=== PATIENT | female | born 1960 | race Caucasian/White ===

== ENCOUNTER 2022-12-25 16:48 | Inpatient (IN) | payer MEDICARE ==
[2022-12-25] MEDS ORDERED: methylPREDNISolone Sod Succ/PF 125 MG/2 ML VIAL ONE (17:14)
[2022-12-25 17:29] LABS: #Basophils 0.1 10x3/uL (0.0-0.2); #Monocytes 0.2 10x3/uL (0.0-1.1); #Neutrophils 14.2 10x3/uL (1.5-8.4); %Basophils 0.4 % (0.0-2.0); %Eosinophils 0.3 % (0.0-6.0); %Lymphocytes 7.4 % (18.0-47.0); %Monocytes 1.1 % (0.0-10.0); %Neutrophils 90.4 % (40.0-75.0); Hemoglobin 16.8 g/dL (12.0-15.5); Mean Corpuscular HGB CONC 33.5 g/dL (32.0-36.0); Mean Corpuscular Hemoglobin 30.4 pg (27.0-33.0); Mean Corpuscular Volume 90.8 fl (81.6-98.3); Mean Platelet Volume 9.3 fl (7.4-10.4); Platelet Count 282 10x3/uL (150-450); RBC Distribution Width 12.5 % (11.5-14.5); Red Blood Cell (RBC) Count 5.53 10x6/uL (3.90-5.03); White Blood Cell (WBC) Count 15.7 10x3/uL (3.5-10.5)
[2022-12-25] MEDS ORDERED: Levalbuterol HCl 0.63 MG/3 ML NEB NEB SCH (17:30)
[2022-12-25 17:38] LABS: ALT (SGPT) 20 U/L (8-55); AST (SGOT) 19 U/L (5-34); Albumin 4.5 g/dL (3.4-4.8); Alkaline Phosphatase 51 U/L (40-110); Anion Gap 17 mmol/L (10-20); BUN (Urea Nitrogen) 11 mg/dL (9.8-20.1); Bilirubin, Total 0.7 mg/dL (0.2-1.2); Calc. Creatinine Clearance 0 mL/min (70-130); Calcium 10.6 mg/dL (7.8-10.44); Carbon Dioxide 24 mmol/L (23-31); Chloride 104 mmol/L (98-107); Estimated GFR 47; Globulin 2.6 g/dL (2.4-3.5); Glucose 171 mg/dL (80-115); Protein, Total 7.1 g/dL (5.8-8.1); Sodium 141 mmol/L (136-145)
[2022-12-25 17:56] LABS: Actual Bicarbonate (HCO3a) 19.5 mEq/L (22-28); Base Excess (BEa) -6.8 mEq/L (-2.0 to +3.0); CO2 Tension 41.8 mmHg (35.0-45.0); Calcium, Ionized (arterial) 1.28 mmol/L (1.12-1.30); Carboxyhemoglobin (COHb) 0.6 gm% (0.0-3.0); Hemoglobin (Hb) 16.3 g/dL (12.0-16.0); Potassium - ABG Lab 3.7 mmol/L (3.70-5.30); Puncture Site LRA; pH, Arterial 7.29 (7.35-7.45)
[2022-12-25] MEDS ORDERED: HYDROcodone/Acetaminophen 5/325 mg Tablet PO PRN (17:56)
[2022-12-25] MEDS ORDERED: Ondansetron PF 4 MG/2 ML Vial IVP PRN (17:56)
[2022-12-25] MEDS ORDERED: Acetaminophen 650 MG Suppository PR PRN (17:56)
[2022-12-25] MEDS ORDERED: cefTRIAXone\\ROCEPHIN 2 GM in Sodium Chloride 0.9% 100 ML IVPB SCH (18:00)
[2022-12-25] MEDS ORDERED: Rocuronium Bromide 10 MG/ML (10ML VIAL) ONE (18:41)
[2022-12-25] MEDS ORDERED: Propofol BOLUS 1,000 MG/100 ML VIAL IV PRN (20:15)
[2022-12-25] MEDS ORDERED: Fentanyl BOLUS 250 ML IVPB PRN (20:15)
[2022-12-25] MEDS ORDERED: DISCONTINUE PREVIOUS NARCOTIC PAIN MEDICATIONS AND BENZODIAZEPINES FS SCH (20:15)
[2022-12-25] MEDS ORDERED: Arformoterol 15 MCG/2 ML NEB NEB SCH (20:15)
[2022-12-25 20:33] LABS: Troponin I Less than 0.010 ng/mL (< 0.028)
[2022-12-25] MEDS: Sodium Chloride 0.9% 1,000 ML IV SCH (20:44)
[2022-12-25] MEDS: methylPREDNISolone Sod Succ 40 MG VIAL IVP SCH (20:44)
[2022-12-25] MEDS: Azithromycin 500 MG in Sodium Chloride 0.9% 250 ML 250 ML IVPB SCH (20:45)
[2022-12-25] MEDS ORDERED: Famotidine 20 MG TAB PO SCH (21:00)
[2022-12-25] MEDS ORDERED: Heparin 5,000 UNITS/ML VIAL SC SCH (21:00)
[2022-12-25 21:41] LABS: Bilirubin Neg (Negative); Blood, Urine 50 (Negative); Clarity Clear (Clear); Glucose, Urine (Dipstick) Normal (Negative); Ketone, Urine Negative (Negative); Leukocyte Negative (Negative); Nitrite Negative (Negative); Protein, Urine (Dipstick) 15 mg/dl (Neg-Trace); Specific Gravity, Urine 1.015 (1.005-1.030); Urobilinogen Normal mg/dL (Less than 2)
[2022-12-25 22:15] LABS: Bacteria/HPF None Seen HPF (None Seen); Squamous Epithelial 0-3 HPF (0-3); WBC/HPF 0-3 HPF (0-3)
[2022-12-25] MEDS: Ipratropium/Albuterol 3 ML NEB NEB SCH (23:05)
[2022-12-25 23:55] LABS: Troponin I Less than 0.010 ng/mL (< 0.028)
[2022-12-26] MEDS: methylPREDNISolone Sod Succ 40 MG VIAL IVP SCH ×4 (02:50→20:21)
[2022-12-26] MEDS: cefTRIAXone\\ROCEPHIN 2 GM in Sodium Chloride 0.9% 100 ML IVPB SCH (02:50)
[2022-12-26] MEDS ORDERED: Cefepime 2 GM in Sodium Chloride 0.9% 100 ML IVPB SCH (03:00)
[2022-12-26] MEDS: Ipratropium/Albuterol 3 ML NEB NEB SCH ×6 (03:35→22:30)
[2022-12-26] MEDS ORDERED: Dextrose 50% Abboject 50 ML SYRINGE SLOW IVP PRN (04:04)
[2022-12-26] MEDS ORDERED: Dextrose 5% in Water 1,000 ML IV PRN (04:04)
[2022-12-26 04:07] LABS: Actual Bicarbonate (HCO3a) 22.9 mEq/L (22-28); Base Excess (BEa) -4.8 mEq/L (-2.0 to +3.0); CO2 Tension 51.8 mmHg (35.0-45.0); Calcium, Ionized (arterial) 1.36 mmol/L (1.12-1.30); Critical Notified By: CP.PH; Hemoglobin (Hb) 16.2 g/dL (12.0-16.0); O2 Tension (PaO2), arterial 64.3 mmHg (> 80.0); Potassium - ABG Lab 4.6 mmol/L (3.70-5.30); Puncture Site RRA; RapidComm Collect By CP.PH; pH, Arterial 7.26 (7.35-7.45)
[2022-12-26 04:09] LABS: #Monocytes 0.5 10x3/uL (0.0-1.1); #Neutrophils 14.3 10x3/uL (1.5-8.4); %Basophils 0.2 % (0.0-2.0); %Lymphocytes 7.4 % (18.0-47.0); %Monocytes 2.9 % (0.0-10.0); %Neutrophils 88.8 % (40.0-75.0); Hemoglobin 15.2 g/dL (12.0-15.5); Mean Corpuscular Hemoglobin 30.2 pg (27.0-33.0); Mean Corpuscular Volume 91.3 fl (81.6-98.3); Mean Platelet Volume 9.3 fl (7.4-10.4); Platelet Count 250 10x3/uL (150-450); RBC Distribution Width 12.7 % (11.5-14.5); Red Blood Cell (RBC) Count 5.04 10x6/uL (3.90-5.03); White Blood Cell (WBC) Count 16.1 10x3/uL (3.5-10.5)
[2022-12-26 04:11] LABS: ALT (SGPT) 18 U/L (8-55); AST (SGOT) 15 U/L (5-34); Albumin 3.9 g/dL (3.4-4.8); Alkaline Phosphatase 43 U/L (40-110); Anion Gap 16 mmol/L (10-20); BUN (Urea Nitrogen) 17 mg/dL (9.8-20.1); Bilirubin, Total 0.3 mg/dL (0.2-1.2); Calc. Creatinine Clearance 38 mL/min (70-130); Carbon Dioxide 20 mmol/L (23-31); Chloride 111 mmol/L (98-107); Estimated GFR 48; Globulin 2.4 g/dL (2.4-3.5); Glucose 193 mg/dL (80-115); Magnesium 2.1 mg/dL (1.6-2.6); Potassium 3.8 mmol/L (3.5-5.1); Protein, Total 6.3 g/dL (5.8-8.1); Sodium 143 mmol/L (136-145)
[2022-12-26] MEDS ORDERED: Lactated Ringer's 1,000 ML IV SCH (04:15)
[2022-12-26] MEDS: Arformoterol 15 MCG/2 ML NEB NEB SCH ×2 (07:00→18:50)
[2022-12-26] MEDS ORDERED: DEXMEDETOMIDINE ONE (07:44)
[2022-12-26] MEDS ORDERED: NACL 0.9% ONE (07:44)
[2022-12-26] MEDS: Dexmedetomidine In 0.9 % NaCl 100 ML IVPB SCH ×3 (07:45→20:21)
[2022-12-26 07:51] LABS: ALV-art Gradient 231.075 mmHg (0-20); Actual Bicarbonate (HCO3a) 24.8 mEq/L (22-28); Base Excess (BEa) -0.8 mEq/L (-2.0 to +3.0); CO2 Tension 44.1 mmHg (35.0-45.0); Calcium, Ionized (arterial) 1.34 mmol/L (1.12-1.30); Carboxyhemoglobin (COHb) 0.4 gm% (0.0-3.0); Hemoglobin (Hb) 15.4 g/dL (12.0-16.0); O2 Tension (PaO2), arterial 70.3 mmHg (> 80.0); Potassium - ABG Lab 3.8 mmol/L (3.70-5.30); Puncture Site LRA; pH, Arterial 7.37 (7.35-7.45)
[2022-12-26] MEDS ORDERED: methylPREDNISolone Sod Succ 40 MG VIAL IVP SCH (08:00)
[2022-12-26] MEDS: Sodium Chloride 0.9% 1,000 ML IV SCH ×2 (08:18→21:28)
[2022-12-26] MEDS: Pantoprazole 40 MG VIAL IVP SCH (08:20)
[2022-12-26] MEDS: HumaLOG 300 UNITS/3 ML VIAL SC PRN ×3 (08:21→16:18)
[2022-12-26] MEDS ORDERED: Azithromycin 500 MG in Sodium Chloride 0.9% 250 ML 250 ML IVPB SCH (18:00)
[2022-12-26] MEDS ORDERED: Sodium Chloride 0.9% 250 ML 250 ML ONE (20:17)
[2022-12-26] MEDS: Azithromycin 500 MG in Sodium Chloride 0.9% 250 ML 250 ML IVPB SCH (20:21)
[2022-12-26] MEDS: Lorazepam 2 MG/ML VIAL SLOW IVP PRN (23:32)
[2022-12-26] MEDS: Guaifenesin DM 100-10/5 ML UDCUP PO PRN (23:32)
[2022-12-27] MEDS: Ipratropium/Albuterol 3 ML NEB NEB SCH ×6 (02:30→22:30)
[2022-12-27] MEDS: methylPREDNISolone Sod Succ 40 MG VIAL IVP SCH ×4 (03:04→20:36)
[2022-12-27] MEDS: Dexmedetomidine In 0.9 % NaCl 100 ML IVPB SCH ×4 (03:04→22:54)
[2022-12-27] MEDS: cefTRIAXone\\ROCEPHIN 2 GM in Sodium Chloride 0.9% 100 ML IVPB SCH (03:04)
[2022-12-27 04:18] LABS: ALV-art Gradient 158.675 mmHg (0-20); Actual Bicarbonate (HCO3a) 25.4 mEq/L (22-28); Base Excess (BEa) 0.1 mEq/L (-2.0 to +3.0); CO2 Tension 43.3 mmHg (35.0-45.0); Calcium, Ionized (arterial) 1.35 mmol/L (1.12-1.30); Carboxyhemoglobin (COHb) 0.3 gm% (0.0-3.0); Critical Notified By: CP.PH; Hemoglobin (Hb) 14.9 g/dL (12.0-16.0); O2 Tension (PaO2), arterial 72.4 mmHg (> 80.0); Potassium - ABG Lab 3.3 mmol/L (3.70-5.30); Puncture Site RRA; RapidComm Collect By CP.PH; pH, Arterial 7.39 (7.35-7.45)
[2022-12-27 05:28] LABS: #Monocytes 0.5 10x3/uL (0.0-1.1); #Neutrophils 14.9 10x3/uL (1.5-8.4); %Basophils 0.1 % (0.0-2.0); %Monocytes 2.8 % (0.0-10.0); %Neutrophils 91.4 % (40.0-75.0); Hemoglobin 14.3 g/dL (12.0-15.5); Mean Corpuscular HGB CONC 33.1 g/dL (32.0-36.0); Mean Corpuscular Hemoglobin 30.6 pg (27.0-33.0); Mean Corpuscular Volume 92.5 fl (81.6-98.3); Mean Platelet Volume 9.7 fl (7.4-10.4); Platelet Count 199 10x3/uL (150-450); RBC Distribution Width 12.8 % (11.5-14.5); Red Blood Cell (RBC) Count 4.67 10x6/uL (3.90-5.03); White Blood Cell (WBC) Count 16.3 10x3/uL (3.5-10.5)
[2022-12-27 05:35] LABS: Anion Gap 15 mmol/L (10-20); BUN (Urea Nitrogen) 25 mg/dL (9.8-20.1); Calc. Creatinine Clearance 46 mL/min (70-130); Calcium 10.4 mg/dL (7.8-10.44); Carbon Dioxide 20 mmol/L (23-31); Chloride 115 mmol/L (98-107); Estimated GFR 59; Glucose 161 mg/dL (80-115); Potassium 3.6 mmol/L (3.5-5.1); Sodium 146 mmol/L (136-145)
[2022-12-27] MEDS: Arformoterol 15 MCG/2 ML NEB NEB SCH ×2 (06:30→19:20)
[2022-12-27] MEDS: Pantoprazole 40 MG VIAL IVP SCH (08:06)
[2022-12-27] MEDS: Lorazepam 2 MG/ML VIAL SLOW IVP PRN ×4 (08:57→23:47)
[2022-12-27] MEDS: Sodium Chloride 0.9% 1,000 ML IV SCH (11:20)
[2022-12-27] MEDS: Morphine 2 MG/ML VIAL SLOW IVP PRN (12:10)
[2022-12-27] MEDS: Guaifenesin DM 100-10/5 ML UDCUP PO PRN ×2 (12:11→22:54)
[2022-12-27] MEDS: Labetalol HCl 100 MG/20 ML VIAL SLOW IVP PRN (12:34)
[2022-12-27] MEDS: Azithromycin 500 MG in Sodium Chloride 0.9% 250 ML 250 ML IVPB SCH (20:36)
[2022-12-28] MEDS: Sodium Chloride 0.9% 1,000 ML IV SCH (00:33)
[2022-12-28] MEDS: Ipratropium/Albuterol 3 ML NEB NEB SCH ×6 (02:40→22:30)
[2022-12-28] MEDS: cefTRIAXone\\ROCEPHIN 2 GM in Sodium Chloride 0.9% 100 ML IVPB SCH (03:15)
[2022-12-28] MEDS: methylPREDNISolone Sod Succ 40 MG VIAL IVP SCH ×4 (03:16→20:08)
[2022-12-28 03:38] LABS: #Monocytes 0.5 10x3/uL (0.0-1.1); #Neutrophils 12.8 10x3/uL (1.5-8.4); %Basophils 0.2 % (0.0-2.0); %Lymphocytes 5.1 % (18.0-47.0); %Monocytes 3.3 % (0.0-10.0); %Neutrophils 90.2 % (40.0-75.0); Hemoglobin 13.7 g/dL (12.0-15.5); Mean Corpuscular HGB CONC 32.1 g/dL (32.0-36.0); Mean Corpuscular Hemoglobin 30.4 pg (27.0-33.0); Mean Corpuscular Volume 94.9 fl (81.6-98.3); Mean Platelet Volume 9.6 fl (7.4-10.4); Platelet Count 208 10x3/uL (150-450); RBC Distribution Width 13.2 % (11.5-14.5); White Blood Cell (WBC) Count 14.2 10x3/uL (3.5-10.5)
[2022-12-28 03:54] LABS: Anion Gap 12 mmol/L (10-20); BUN (Urea Nitrogen) 32 mg/dL (9.8-20.1); Calc. Creatinine Clearance 44 mL/min (70-130); Calcium 10.4 mg/dL (7.8-10.44); Carbon Dioxide 25 mmol/L (23-31); Chloride 118 mmol/L (98-107); Estimated GFR 56; Glucose 176 mg/dL (80-115); Potassium 3.8 mmol/L (3.5-5.1)
[2022-12-28 03:58] LABS: Sodium 151 mmol/L (136-145)
[2022-12-28] MEDS: Labetalol HCl 100 MG/20 ML VIAL SLOW IVP PRN (04:15)
[2022-12-28 04:21] LABS: Actual Bicarbonate (HCO3a) 25.7 mEq/L (22-28); Base Excess (BEa) -1.3 mEq/L (-2.0 to +3.0); CO2 Tension 51.9 mmHg (35.0-45.0); Calcium, Ionized (arterial) 1.39 mmol/L (1.12-1.30); Carboxyhemoglobin (COHb) 0.3 gm% (0.0-3.0); Critical Notified By: CP.PH; Potassium - ABG Lab 3.6 mmol/L (3.70-5.30); Puncture Site RRA; RapidComm Collect By CP.PH; pH, Arterial 7.31 (7.35-7.45)
[2022-12-28 04:22] LABS: ALV-art Gradient 213.625 mmHg (0-20)
[2022-12-28] MEDS: 1/2 NS w/KCL 20 mEq 1,000 ML IV SCH ×3 (04:27→20:08)
[2022-12-28] MEDS: Dexmedetomidine In 0.9 % NaCl 100 ML IVPB SCH ×4 (04:27→21:52)
[2022-12-28] MEDS: HumaLOG 300 UNITS/3 ML VIAL SC PRN ×3 (04:28→20:44)
[2022-12-28] MEDS: Propofol 1,000 MG/100 ML VIAL IV PRN ×3 (07:26→19:55)
[2022-12-28] MEDS: Lorazepam 2 MG/ML VIAL SLOW IVP PRN (07:47)
[2022-12-28] MEDS ORDERED: Pantoprazole 40 MG VIAL ONE (07:50)
[2022-12-28] MEDS: Arformoterol 15 MCG/2 ML NEB NEB SCH ×2 (08:00→18:56)
[2022-12-28] MEDS: Pantoprazole 40 MG VIAL IVP SCH (08:01)
[2022-12-28 13:35] LABS: Anion Gap 11 mmol/L (10-20); BUN (Urea Nitrogen) 33 mg/dL (9.8-20.1); Calc. Creatinine Clearance 49 mL/min (70-130); Calcium 10.3 mg/dL (7.8-10.44); Carbon Dioxide 25 mmol/L (23-31); Chloride 116 mmol/L (98-107); Estimated GFR 63; Glucose 154 mg/dL (80-115); Potassium 4.6 mmol/L (3.5-5.1); Sodium 147 mmol/L (136-145)
[2022-12-28] MEDS: Azithromycin 500 MG in Sodium Chloride 0.9% 250 ML 250 ML IVPB SCH (20:08)
[2022-12-29] MEDS: Ipratropium Bromide 2.5 ml Neb NEB SCH ×4 (00:43→15:30)
[2022-12-29 03:44] LABS: Hemoglobin 13.3 g/dL (12.0-15.5); Mean Corpuscular HGB CONC 31.7 g/dL (32.0-36.0); Mean Corpuscular Hemoglobin 30.3 pg (27.0-33.0); Mean Corpuscular Volume 95.7 fl (81.6-98.3); Platelet Count 171 10x3/uL (150-450); RBC Distribution Width 13.3 % (11.5-14.5); Red Blood Cell (RBC) Count 4.39 10x6/uL (3.90-5.03); White Blood Cell (WBC) Count 13.6 10x3/uL (3.5-10.5)
[2022-12-29 03:48] LABS: ALV-art Gradient 218.625 mmHg (0-20); Actual Bicarbonate (HCO3a) 26.4 mEq/L (22-28); Base Excess (BEa) 1.8 mEq/L (-2.0 to +3.0); CO2 Tension 41.1 mmHg (35.0-45.0); Carboxyhemoglobin (COHb) 0.2 gm% (0.0-3.0); Critical Notified By: Udy, RRT; Hemoglobin (Hb) 14.3 g/dL (12.0-16.0); O2 Tension (PaO2), arterial 86.5 mmHg (> 80.0); Potassium - ABG Lab 4.3 mmol/L (3.70-5.30); Puncture Site RRA; RapidComm Collect By Udy, RRT; pH, Arterial 7.43 (7.35-7.45)
[2022-12-29] MEDS: cefTRIAXone\\ROCEPHIN 2 GM in Sodium Chloride 0.9% 100 ML IVPB SCH (03:50)
[2022-12-29 03:52] LABS: MDiff Complete? YES; Manual Diff?? YES
[2022-12-29] MEDS: methylPREDNISolone Sod Succ 40 MG VIAL IVP SCH ×4 (03:53→20:34)
[2022-12-29 03:59] LABS: Anion Gap 12 mmol/L (10-20); BUN (Urea Nitrogen) 30 mg/dL (9.8-20.1); Calc. Creatinine Clearance 57 mL/min (70-130); Calcium 10.2 mg/dL (7.8-10.44); Carbon Dioxide 23 mmol/L (23-31); Chloride 116 mmol/L (98-107); Estimated GFR 75; Glucose 140 mg/dL (80-115); Potassium 4.6 mmol/L (3.5-5.1); Sodium 146 mmol/L (136-145)
[2022-12-29 04:47] LABS: Band 3 % (5-11); Lymphocytes 3 % (21-51); Monocytes 4 % (0-10); Neutrophil 90 % (42-75); Platelet Morphology Comment Appears Adequate
[2022-12-29] MEDS: Dexmedetomidine In 0.9 % NaCl 100 ML IVPB SCH ×3 (05:07→19:09)
[2022-12-29] MEDS: 1/2 NS w/KCL 20 mEq 1,000 ML IV SCH (06:09)
[2022-12-29] MEDS: Propofol 1,000 MG/100 ML VIAL IV PRN (09:03)
[2022-12-29] MEDS: Pantoprazole 40 MG VIAL IVP SCH (09:17)
[2022-12-29] MEDS: HumaLOG 300 UNITS/3 ML VIAL SC PRN ×2 (09:36→16:14)
[2022-12-29] MEDS: Lorazepam 2 MG/ML VIAL SLOW IVP PRN ×2 (10:59→22:41)
[2022-12-29] MEDS: Azithromycin 500 MG in Sodium Chloride 0.9% 250 ML 250 ML IVPB SCH (20:33)
[2022-12-29] MEDS: Morphine 2 MG/ML VIAL SLOW IVP PRN (22:25)
[2022-12-30] MEDS: Propofol 1,000 MG/100 ML VIAL IV PRN ×3 (01:12→20:01)
[2022-12-30] MEDS: Dexmedetomidine In 0.9 % NaCl 100 ML IVPB SCH ×5 (01:13→20:01)
[2022-12-30] MEDS: cefTRIAXone\\ROCEPHIN 2 GM in Sodium Chloride 0.9% 100 ML IVPB SCH (03:08)
[2022-12-30] MEDS: methylPREDNISolone Sod Succ 40 MG VIAL IVP SCH ×3 (03:09→14:00)
[2022-12-30 04:17] LABS: Hemoglobin 14.3 g/dL (12.0-15.5); Mean Corpuscular HGB CONC 31.9 g/dL (32.0-36.0); Mean Corpuscular Hemoglobin 30.7 pg (27.0-33.0); Mean Corpuscular Volume 96.1 fl (81.6-98.3); Mean Platelet Volume 10.3 fl (7.4-10.4); Platelet Count 208 10x3/uL (150-450); RBC Distribution Width 13.3 % (11.5-14.5); Red Blood Cell (RBC) Count 4.66 10x6/uL (3.90-5.03); White Blood Cell (WBC) Count 20.3 10x3/uL (3.5-10.5)
[2022-12-30 04:38] LABS: Anion Gap 13 mmol/L (10-20); BUN (Urea Nitrogen) 33 mg/dL (9.8-20.1); CRP (Inflammatory) Less than 0.50 mg/dL (= or < 0.5); Calc. Creatinine Clearance 49 mL/min (70-130); Calcium 10.3 mg/dL (7.8-10.44); Carbon Dioxide 25 mmol/L (23-31); Chloride 111 mmol/L (98-107); Estimated GFR 59; Glucose 198 mg/dL (80-115); Potassium 4.7 mmol/L (3.5-5.1); Sodium 144 mmol/L (136-145)
[2022-12-30] MEDS: Acetaminophen 325 MG TAB PO PRN (04:39)
[2022-12-30 04:43] LABS: Manual Diff?? YES
[2022-12-30 04:44] LABS: MDiff Complete? YES
[2022-12-30 04:54] LABS: Band 5 % (5-11); Lymphocytes 3 % (21-51); Monocytes 5 % (0-10); Neutrophil 85 % (42-75); Reactive Lymphocytes 2 % (0-10)
[2022-12-30 04:55] LABS: Platelet Morphology Comment Appears Adequate
[2022-12-30 04:56] LABS: Dohle Bodies SLIGHT; Toxic Granulation SLIGHT; Vacuoles SLIGHT
[2022-12-30 05:03] LABS: Actual Bicarbonate (HCO3a) 26.8 mEq/L (22-28); Base Excess (BEa) -0.1 mEq/L (-2.0 to +3.0); CO2 Tension 52.4 mmHg (35.0-45.0); Calcium, Ionized (arterial) 1.42 mmol/L (1.12-1.30); Carboxyhemoglobin (COHb) 0.1 gm% (0.0-3.0); Hemoglobin (Hb) 15.2 g/dL (12.0-16.0); O2 Tension (PaO2), arterial 69.2 mmHg (> 80.0); Potassium - ABG Lab 4.5 mmol/L (3.70-5.30); Puncture Site RRA; pH, Arterial 7.33 (7.35-7.45)
[2022-12-30] MEDS: HumaLOG 300 UNITS/3 ML VIAL SC PRN ×3 (06:02→20:44)
[2022-12-30] MEDS: Ipratropium Bromide 2.5 ml Neb NEB SCH ×3 (06:40→23:30)
[2022-12-30] MEDS: Pantoprazole 40 MG VIAL IVP SCH (08:00)
[2022-12-30] MEDS ORDERED: Labetalol HCl 100 MG/20 ML VIAL SLOW IVP SCH (09:00)
[2022-12-30] MEDS: Azithromycin 500 MG in Sodium Chloride 0.9% 250 ML 250 ML IVPB SCH (20:01)
[2022-12-31] MEDS: Lorazepam 2 MG/ML VIAL SLOW IVP PRN (00:55)
[2022-12-31] MEDS: Morphine 2 MG/ML VIAL SLOW IVP PRN (00:57)
[2022-12-31] MEDS: cefTRIAXone\\ROCEPHIN 2 GM in Sodium Chloride 0.9% 100 ML IVPB SCH (02:01)
[2022-12-31 03:49] LABS: Actual Bicarbonate (HCO3a) 29.3 mEq/L (22-28); Base Excess (BEa) 2.9 mEq/L (-2.0 to +3.0); CO2 Tension 51.6 mmHg (35.0-45.0); Calcium, Ionized (arterial) 1.39 mmol/L (1.12-1.30); Carboxyhemoglobin (COHb) 0.2 gm% (0.0-3.0); Critical Notified By: CP.PH; Hemoglobin (Hb) 15.5 g/dL (12.0-16.0); O2 Tension (PaO2), arterial 60.9 mmHg (> 80.0); Potassium - ABG Lab 4.4 mmol/L (3.70-5.30); Puncture Site RRA; RapidComm Collect By CP.PH; pH, Arterial 7.37 (7.35-7.45)
[2022-12-31] MEDS: Dexmedetomidine In 0.9 % NaCl 100 ML IVPB SCH ×4 (04:16→20:19)
[2022-12-31 04:26] LABS: #Monocytes 0.8 10x3/uL (0.0-1.1); #Neutrophils 12.7 10x3/uL (1.5-8.4); %Basophils 0.1 % (0.0-2.0); %Monocytes 5.3 % (0.0-10.0); Hemoglobin 14.7 g/dL (12.0-15.5); Mean Corpuscular HGB CONC 31.5 g/dL (32.0-36.0); Mean Corpuscular Hemoglobin 30.2 pg (27.0-33.0); Mean Corpuscular Volume 95.7 fl (81.6-98.3); Mean Platelet Volume 10.3 fl (7.4-10.4); Platelet Count 169 10x3/uL (150-450); RBC Distribution Width 13.2 % (11.5-14.5); Red Blood Cell (RBC) Count 4.87 10x6/uL (3.90-5.03); White Blood Cell (WBC) Count 15.3 10x3/uL (3.5-10.5)
[2022-12-31 04:36] LABS: Anion Gap 14 mmol/L (10-20); BUN (Urea Nitrogen) 28 mg/dL (9.8-20.1); Calc. Creatinine Clearance 56 mL/min (70-130); Calcium 10.5 mg/dL (7.8-10.44); Carbon Dioxide 30 mmol/L (23-31); Chloride 108 mmol/L (98-107); Estimated GFR 70; Glucose 135 mg/dL (80-115); Potassium 4.9 mmol/L (3.5-5.1); Sodium 147 mmol/L (136-145)
[2022-12-31] MEDS: Ipratropium Bromide 2.5 ml Neb NEB SCH ×3 (07:00→23:05)
[2022-12-31] MEDS: Pantoprazole 40 MG VIAL IVP SCH (07:42)
[2022-12-31] MEDS: methylPREDNISolone Sod Succ 40 MG VIAL IVP SCH (07:43)
[2022-12-31] MEDS: HumaLOG 300 UNITS/3 ML VIAL SC PRN ×2 (13:07→16:03)
[2022-12-31] MEDS: Azithromycin 500 MG in Sodium Chloride 0.9% 250 ML 250 ML IVPB SCH (20:19)
[2023-01-01] MEDS: Dexmedetomidine In 0.9 % NaCl 100 ML IVPB SCH ×5 (00:47→23:21)
[2023-01-01] MEDS: Propofol 1,000 MG/100 ML VIAL IV PRN (01:37)
[2023-01-01] MEDS: cefTRIAXone\\ROCEPHIN 2 GM in Sodium Chloride 0.9% 100 ML IVPB SCH (02:43)
[2023-01-01 03:57] LABS: #Monocytes 0.9 10x3/uL (0.0-1.1); #Neutrophils 11.3 10x3/uL (1.5-8.4); %Basophils 0.1 % (0.0-2.0); %Eosinophils 0.1 % (0.0-6.0); %Lymphocytes 12.4 % (18.0-47.0); %Monocytes 6.1 % (0.0-10.0); %Neutrophils 80.5 % (40.0-75.0); Hemoglobin 13.7 g/dL (12.0-15.5); Mean Corpuscular HGB CONC 31.9 g/dL (32.0-36.0); Mean Corpuscular Hemoglobin 30.2 pg (27.0-33.0); Mean Corpuscular Volume 94.5 fl (81.6-98.3); Mean Platelet Volume 10.5 fl (7.4-10.4); Platelet Count 146 10x3/uL (150-450); RBC Distribution Width 13.1 % (11.5-14.5); Red Blood Cell (RBC) Count 4.54 10x6/uL (3.90-5.03)
[2023-01-01 03:59] LABS: Actual Bicarbonate (HCO3a) 30.7 mEq/L (22-28); Base Excess (BEa) 6.6 mEq/L (-2.0 to +3.0); CO2 Tension 41.7 mmHg (35.0-45.0); Calcium, Ionized (arterial) 1.32 mmol/L (1.12-1.30); Carboxyhemoglobin (COHb) 0.4 gm% (0.0-3.0); Critical Notified By: CP.PH; Hemoglobin (Hb) 14.8 g/dL (12.0-16.0); O2 Tension (PaO2), arterial 57.5 mmHg (> 80.0); Potassium - ABG Lab 3.9 mmol/L (3.70-5.30); Puncture Site RRA; RapidComm Collect By CP.PH; pH, Arterial 7.49 (7.35-7.45)
[2023-01-01 04:00] LABS: ALV-art Gradient 175.575 mmHg (0-20)
[2023-01-01 04:03] LABS: ALT (SGPT) 51 U/L (8-55); AST (SGOT) 16 U/L (5-34); Albumin 3.2 g/dL (3.4-4.8); Alkaline Phosphatase 40 U/L (40-110); Anion Gap 12 mmol/L (10-20); BUN (Urea Nitrogen) 24 mg/dL (9.8-20.1); Bilirubin, Total 0.3 mg/dL (0.2-1.2); Calc. Creatinine Clearance 58 mL/min (70-130); Calcium 10.3 mg/dL (7.8-10.44); Carbon Dioxide 33 mmol/L (23-31); Chloride 108 mmol/L (98-107); Estimated GFR 72; Globulin 2.3 g/dL (2.4-3.5); Glucose 165 mg/dL (80-115); Magnesium 1.9 mg/dL (1.6-2.6); Protein, Total 5.5 g/dL (5.8-8.1); Sodium 149 mmol/L (136-145)
[2023-01-01 04:11] LABS: Phosphorus 2.2 mg/dL (2.3-4.7)
[2023-01-01] MEDS: Ipratropium Bromide 2.5 ml Neb NEB SCH ×3 (07:00→23:00)
[2023-01-01] MEDS ORDERED: Electrolyte Replacement Protocol 1 EACH FS SCH (07:44)
[2023-01-01] MEDS: Pantoprazole 40 MG VIAL IVP SCH (08:11)
[2023-01-01] MEDS: methylPREDNISolone Sod Succ 40 MG VIAL IVP SCH (08:11)
[2023-01-01] MEDS: Acetaminophen 325 MG TAB PO PRN (08:12)
[2023-01-01] MEDS ORDERED: Magnesium 2 GM/50 ML(in water) 2 GM in Premix Bag 1 BAG IVPB SCH (08:30)
[2023-01-01] MEDS: Guaifenesin DM 100-10/5 ML UDCUP PO PRN (09:14)
[2023-01-01] MEDS: Morphine 2 MG/ML VIAL SLOW IVP PRN (09:39)
[2023-01-01] MEDS: Dextrose 5% in Water 1,000 ML IV SCH ×2 (10:31→19:57)
[2023-01-01] MEDS: clonazePAM 0.5 MG TAB PO SCH ×2 (10:31→20:55)
[2023-01-01] MEDS: Lorazepam 2 MG/ML VIAL SLOW IVP PRN (10:31)
[2023-01-01] MEDS: HumaLOG 300 UNITS/3 ML VIAL SC PRN ×2 (12:38→20:55)
[2023-01-01] MEDS: Bisacodyl 5 MG TAB PO PRN (17:15)
[2023-01-01 19:27] LABS: Anion Gap 11 mmol/L (10-20); BUN (Urea Nitrogen) 24 mg/dL (9.8-20.1); Calc. Creatinine Clearance 55 mL/min (70-130); Calcium 9.5 mg/dL (7.8-10.44); Carbon Dioxide 31 mmol/L (23-31); Chloride 104 mmol/L (98-107); Estimated GFR 67; Glucose 212 mg/dL (80-115); Sodium 141 mmol/L (136-145)
[2023-01-01 19:59] LABS: Potassium 4.5 mmol/L (3.5-5.1)
[2023-01-02] MEDS: HumaLOG 300 UNITS/3 ML VIAL SC PRN ×2 (00:01→04:14)
[2023-01-02] MEDS: cefTRIAXone\\ROCEPHIN 2 GM in Sodium Chloride 0.9% 100 ML IVPB SCH (02:43)
[2023-01-02 03:46] LABS: Actual Bicarbonate (HCO3a) 30.5 mEq/L (22-28); Base Excess (BEa) 6.7 mEq/L (-2.0 to +3.0); CO2 Tension 40.8 mmHg (35.0-45.0); Calcium, Ionized (arterial) 1.27 mmol/L (1.12-1.30); Carboxyhemoglobin (COHb) 0.3 gm% (0.0-3.0); Critical Notified By: Udy, RRT; Hemoglobin (Hb) 13.2 g/dL (12.0-16.0); O2 Tension (PaO2), arterial 70.4 mmHg (> 80.0); Potassium - ABG Lab 3.3 mmol/L (3.70-5.30); Puncture Site LRA; RapidComm Collect By Udy, RRT; pH, Arterial 7.49 (7.35-7.45)
[2023-01-02 04:00] LABS: #Eosinphils 0.1 10x3/uL (0.0-0.5); #Monocytes 0.6 10x3/uL (0.0-1.1); %Basophils 0.2 % (0.0-2.0); %Eosinophils 0.4 % (0.0-6.0); %Lymphocytes 12.8 % (18.0-47.0); %Monocytes 4.7 % (0.0-10.0); %Neutrophils 81.3 % (40.0-75.0); Hemoglobin 12.7 g/dL (12.0-15.5); Mean Corpuscular HGB CONC 31.8 g/dL (32.0-36.0); Mean Corpuscular Hemoglobin 30.3 pg (27.0-33.0); Mean Corpuscular Volume 95.5 fl (81.6-98.3); Mean Platelet Volume 10.8 fl (7.4-10.4); Platelet Count 136 10x3/uL (150-450); RBC Distribution Width 12.8 % (11.5-14.5); Red Blood Cell (RBC) Count 4.19 10x6/uL (3.90-5.03); White Blood Cell (WBC) Count 12.3 10x3/uL (3.5-10.5)
[2023-01-02 04:04] LABS: Anion Gap 11 mmol/L (10-20); BUN (Urea Nitrogen) 23 mg/dL (9.8-20.1); Calc. Creatinine Clearance 58 mL/min (70-130); Calcium 9.8 mg/dL (7.8-10.44); Carbon Dioxide 33 mmol/L (23-31); Chloride 100 mmol/L (98-107); Estimated GFR 72; Glucose 235 mg/dL (80-115); Potassium 3.2 mmol/L (3.5-5.1); Sodium 141 mmol/L (136-145)
[2023-01-02] MEDS: Morphine 2 MG/ML VIAL SLOW IVP PRN (04:49)
[2023-01-02] MEDS: Dexmedetomidine In 0.9 % NaCl 100 ML IVPB SCH ×4 (04:50→23:04)
[2023-01-02] MEDS: Potassium Chloride 20 MEQ in Premix Bag 1 BAG IVPB SCH ×2 (05:56→11:53)
[2023-01-02] MEDS: Dextrose 5% in Water 1,000 ML IV SCH (06:06)
[2023-01-02] MEDS: Bisacodyl 5 MG TAB PO PRN (06:25)
[2023-01-02] MEDS: Ipratropium Bromide 2.5 ml Neb NEB SCH ×2 (06:59→14:45)
[2023-01-02] MEDS: Guaifenesin DM 100-10/5 ML UDCUP PO PRN (07:28)
[2023-01-02] MEDS ORDERED: Pantoprazole 40 MG VIAL ONE (08:28)
[2023-01-02] MEDS: Acetaminophen 325 MG TAB PO PRN (08:30)
[2023-01-02] MEDS: methylPREDNISolone Sod Succ 40 MG VIAL IVP SCH (08:30)
[2023-01-02] MEDS: Pantoprazole 40 MG VIAL IVP SCH (08:30)
[2023-01-02] MEDS: Lorazepam 2 MG/ML VIAL SLOW IVP PRN (10:31)
[2023-01-02] MEDS ORDERED: Rocuronium Bromide 10 MG/ML (10ML VIAL) IVP SCH (12:30)
[2023-01-02] MEDS ORDERED: Rocuronium Bromide 10 MG/ML (10ML VIAL) ONE (12:45)
[2023-01-02 15:13] LABS: Actual Bicarbonate (HCO3a) 34.5 mEq/L (22-28); CO2 Tension 50.5 mmHg (35.0-45.0); Calcium, Ionized (arterial) 1.31 mmol/L (1.12-1.30); Carboxyhemoglobin (COHb) 0.6 gm% (0.0-3.0); Hemoglobin (Hb) 13.8 g/dL (12.0-16.0); O2 Tension (PaO2), arterial 75.1 mmHg (> 80.0); Puncture Site LRA; pH, Arterial 7.45 (7.35-7.45)
[2023-01-02 15:15] LABS: ALV-art Gradient 146.975 mmHg (0-20)
[2023-01-02] MEDS: FENTANYL 2,000MCG/100-0.9%NACL 100 ML IVPB SCH (15:33)
[2023-01-02] MEDS: Sertraline 25 MG TAB PO SCH (16:10)
[2023-01-02] MEDS: clonazePAM 0.5 MG TAB PO SCH ×2 (16:10→22:49)
[2023-01-02] MEDS ORDERED: NOREPINEPHRINE 8 MG/250 ML-D5W 250 ML IVPB SCH (18:45)
[2023-01-02] MEDS ORDERED: Midazolam In 0.9 % NaCl/PF 100 MG in Premix Bag 1 BAG IVPB SCH (18:45)
[2023-01-02 19:35] LABS: Potassium 4.7 mmol/L (3.5-5.1)
[2023-01-03] MEDS: Ipratropium Bromide 2.5 ml Neb NEB SCH ×3 (00:35→14:45)
[2023-01-03] MEDS: cefTRIAXone\\ROCEPHIN 2 GM in Sodium Chloride 0.9% 100 ML IVPB SCH (03:09)
[2023-01-03 03:43] LABS: #Eosinphils 0.1 10x3/uL (0.0-0.5); #Monocytes 0.7 10x3/uL (0.0-1.1); #Neutrophils 9.6 10x3/uL (1.5-8.4); %Basophils 0.1 % (0.0-2.0); %Eosinophils 0.4 % (0.0-6.0); %Lymphocytes 17.1 % (18.0-47.0); %Monocytes 5.8 % (0.0-10.0); Hemoglobin 14.6 g/dL (12.0-15.5); Mean Corpuscular HGB CONC 32.4 g/dL (32.0-36.0); Mean Corpuscular Hemoglobin 30.7 pg (27.0-33.0); Mean Corpuscular Volume 94.9 fl (81.6-98.3); Mean Platelet Volume 10.8 fl (7.4-10.4); Platelet Count 164 10x3/uL (150-450); RBC Distribution Width 12.6 % (11.5-14.5); Red Blood Cell (RBC) Count 4.75 10x6/uL (3.90-5.03); White Blood Cell (WBC) Count 12.6 10x3/uL (3.5-10.5)
[2023-01-03 03:52] LABS: Phosphorus 2.3 mg/dL (2.3-4.7)
[2023-01-03 03:55] LABS: ALT (SGPT) 61 U/L (8-55); AST (SGOT) 20 U/L (5-34); Albumin 3.6 g/dL (3.4-4.8); Alkaline Phosphatase 39 U/L (40-110); Anion Gap 13 mmol/L (10-20); BUN (Urea Nitrogen) 27 mg/dL (9.8-20.1); Bilirubin, Total 0.5 mg/dL (0.2-1.2); Calc. Creatinine Clearance 49 mL/min (70-130); Carbon Dioxide 31 mmol/L (23-31); Chloride 101 mmol/L (98-107); Estimated GFR 58; Globulin 2.6 g/dL (2.4-3.5); Glucose 172 mg/dL (80-115); Magnesium 2.2 mg/dL (1.6-2.6); Potassium 4.4 mmol/L (3.5-5.1); Protein, Total 6.2 g/dL (5.8-8.1); Sodium 141 mmol/L (136-145)
[2023-01-03] MEDS: Dexmedetomidine In 0.9 % NaCl 100 ML IVPB SCH ×4 (04:52→21:04)
[2023-01-03] MEDS: HumaLOG 300 UNITS/3 ML VIAL SC PRN ×3 (05:06→20:43)
[2023-01-03 05:23] LABS: Actual Bicarbonate (HCO3a) 31.4 mEq/L (22-28); Base Excess (BEa) 6.5 mEq/L (-2.0 to +3.0); CO2 Tension 45.8 mmHg (35.0-45.0); Calcium, Ionized (arterial) 1.36 mmol/L (1.12-1.30); Carboxyhemoglobin (COHb) 0.3 gm% (0.0-3.0); Hemoglobin (Hb) 14.2 g/dL (12.0-16.0); O2 Tension (PaO2), arterial 100.3 mmHg (> 80.0); Puncture Site LRA; pH, Arterial 7.45 (7.35-7.45)
[2023-01-03] MEDS: Pantoprazole 40 MG VIAL IVP SCH (08:51)
[2023-01-03] MEDS: clonazePAM 0.5 MG TAB PO SCH ×2 (08:51→20:43)
[2023-01-03] MEDS: Sertraline 25 MG TAB PO SCH (08:51)
[2023-01-03] MEDS: Acetaminophen 325 MG TAB PO PRN ×3 (09:39→21:12)
[2023-01-03] MEDS: methylPREDNISolone Sod Succ 40 MG VIAL IVP SCH (11:26)
[2023-01-03] MEDS: FENTANYL 2,000MCG/100-0.9%NACL 100 ML IVPB SCH (14:41)
[2023-01-03] MEDS: Bisacodyl 5 MG TAB PO PRN (20:48)
[2023-01-04] MEDS: Ipratropium Bromide 2.5 ml Neb NEB SCH ×4 (00:30→23:00)
[2023-01-04] MEDS: HumaLOG 300 UNITS/3 ML VIAL SC PRN ×2 (00:33→11:52)
[2023-01-04] MEDS: cefTRIAXone\\ROCEPHIN 2 GM in Sodium Chloride 0.9% 100 ML IVPB SCH (03:31)
[2023-01-04 04:04] LABS: #Monocytes 0.7 10x3/uL (0.0-1.1); #Neutrophils 7.9 10x3/uL (1.5-8.4); %Eosinophils 0.3 % (0.0-6.0); %Lymphocytes 14.9 % (18.0-47.0); %Monocytes 6.8 % (0.0-10.0); %Neutrophils 77.7 % (40.0-75.0); Hemoglobin 12.3 g/dL (12.0-15.5); Mean Corpuscular HGB CONC 32.1 g/dL (32.0-36.0); Mean Corpuscular Hemoglobin 30.4 pg (27.0-33.0); Mean Corpuscular Volume 94.6 fl (81.6-98.3); Mean Platelet Volume 10.6 fl (7.4-10.4); Platelet Count 150 10x3/uL (150-450); RBC Distribution Width 12.7 % (11.5-14.5); Red Blood Cell (RBC) Count 4.05 10x6/uL (3.90-5.03); White Blood Cell (WBC) Count 10.2 10x3/uL (3.5-10.5)
[2023-01-04 04:18] LABS: ALT (SGPT) 98 U/L (8-55); AST (SGOT) 38 U/L (5-34); Albumin 3.1 g/dL (3.4-4.8); Alkaline Phosphatase 33 U/L (40-110); Anion Gap 12 mmol/L (10-20); BUN (Urea Nitrogen) 27 mg/dL (9.8-20.1); Bilirubin, Total 0.4 mg/dL (0.2-1.2); Calc. Creatinine Clearance 56 mL/min (70-130); Calcium 10.3 mg/dL (7.8-10.44); Carbon Dioxide 33 mmol/L (23-31); Chloride 105 mmol/L (98-107); Estimated GFR 69; Glucose 121 mg/dL (80-115); Magnesium 2.1 mg/dL (1.6-2.6); Potassium 3.6 mmol/L (3.5-5.1); Protein, Total 5.1 g/dL (5.8-8.1); Sodium 146 mmol/L (136-145)
[2023-01-04 04:19] LABS: Phosphorus 3.7 mg/dL (2.3-4.7)
[2023-01-04] MEDS: Dexmedetomidine In 0.9 % NaCl 100 ML IVPB SCH ×3 (04:30→20:15)
[2023-01-04] MEDS ORDERED: Bisacodyl 10 MG SUPP PR SCH (04:45)
[2023-01-04 05:56] LABS: Actual Bicarbonate (HCO3a) 35.7 mEq/L (22-28); Base Excess (BEa) 9.5 mEq/L (-2.0 to +3.0); CO2 Tension 55.2 mmHg (35.0-45.0); Calcium, Ionized (arterial) 1.29 mmol/L (1.12-1.30); Carboxyhemoglobin (COHb) 0.7 gm% (0.0-3.0); Hemoglobin (Hb) 13.6 g/dL (12.0-16.0); O2 Tension (PaO2), arterial 64.2 mmHg (> 80.0); Potassium - ABG Lab 3.5 mmol/L (3.70-5.30); Puncture Site LRA; pH, Arterial 7.43 (7.35-7.45)
[2023-01-04] MEDS: Sertraline 25 MG TAB PO SCH (08:37)
[2023-01-04] MEDS: methylPREDNISolone Sod Succ 40 MG VIAL IVP SCH (08:37)
[2023-01-04] MEDS: Pantoprazole 40 MG VIAL IVP SCH (08:37)
[2023-01-04] MEDS: clonazePAM 0.5 MG TAB PO SCH ×2 (08:38→20:34)
[2023-01-05] MEDS: HumaLOG 300 UNITS/3 ML VIAL SC PRN ×3 (00:15→19:34)
[2023-01-05] MEDS: cefTRIAXone\\ROCEPHIN 2 GM in Sodium Chloride 0.9% 100 ML IVPB SCH (02:40)
[2023-01-05] MEDS: Dexmedetomidine In 0.9 % NaCl 100 ML IVPB SCH ×4 (02:40→22:47)
[2023-01-05 03:47] LABS: #Monocytes 0.7 10x3/uL (0.0-1.1); #Neutrophils 10.4 10x3/uL (1.5-8.4); %Basophils 0.1 % (0.0-2.0); %Eosinophils 0.3 % (0.0-6.0); %Lymphocytes 12.3 % (18.0-47.0); %Monocytes 5.2 % (0.0-10.0); %Neutrophils 81.8 % (40.0-75.0); Hemoglobin 12.1 g/dL (12.0-15.5); Mean Corpuscular HGB CONC 31.3 g/dL (32.0-36.0); Mean Corpuscular Hemoglobin 30.1 pg (27.0-33.0); Mean Platelet Volume 10.4 fl (7.4-10.4); Platelet Count 150 10x3/uL (150-450); RBC Distribution Width 12.8 % (11.5-14.5); Red Blood Cell (RBC) Count 4.02 10x6/uL (3.90-5.03); White Blood Cell (WBC) Count 12.7 10x3/uL (3.5-10.5)
[2023-01-05 03:55] LABS: ALV-art Gradient 127.975 mmHg (0-20); Actual Bicarbonate (HCO3a) 18.8 mEq/L (22-28); Base Excess (BEa) -5.4 mEq/L (-2.0 to +3.0); CO2 Tension 30.9 mmHg (35.0-45.0); Calcium, Ionized (arterial) 0.64 mmol/L (1.12-1.30); Carboxyhemoglobin (COHb) 0.4 gm% (0.0-3.0); Hemoglobin (Hb) 7.7 g/dL (12.0-16.0); O2 Tension (PaO2), arterial 47.3 mmHg (> 80.0); Puncture Site RRA; Temperature 36.7 C
[2023-01-05 04:04] LABS: ALT (SGPT) 85 U/L (8-55); AST (SGOT) 26 U/L (5-34); Albumin 3.1 g/dL (3.4-4.8); Alkaline Phosphatase 36 U/L (40-110); Anion Gap 13 mmol/L (10-20); BUN (Urea Nitrogen) 26 mg/dL (9.8-20.1); Bilirubin, Total 0.3 mg/dL (0.2-1.2); Calc. Creatinine Clearance 58 mL/min (70-130); Calcium 10.4 mg/dL (7.8-10.44); Carbon Dioxide 32 mmol/L (23-31); Chloride 106 mmol/L (98-107); Estimated GFR 70; Globulin 2.2 g/dL (2.4-3.5); Glucose 140 mg/dL (80-115); Potassium 4.1 mmol/L (3.5-5.1); Protein, Total 5.3 g/dL (5.8-8.1); Sodium 147 mmol/L (136-145)
[2023-01-05] MEDS: FENTANYL 2,000MCG/100-0.9%NACL 100 ML IVPB SCH (06:16)
[2023-01-05] MEDS: Sertraline 25 MG TAB PO SCH (07:39)
[2023-01-05] MEDS: Pantoprazole 40 MG VIAL IVP SCH (07:39)
[2023-01-05] MEDS: clonazePAM 0.5 MG TAB PO SCH ×3 (07:39→21:29)
[2023-01-05] MEDS: methylPREDNISolone Sod Succ 40 MG VIAL IVP SCH (07:44)
[2023-01-05] MEDS: Ipratropium Bromide 2.5 ml Neb NEB SCH ×3 (07:48→22:32)
[2023-01-05] MEDS ORDERED: Guaifenesin DM 100-10/5 ML UDCUP ONE (10:45)
[2023-01-05] MEDS: Guaifenesin DM 100-10/5 ML UDCUP PO PRN (10:49)
[2023-01-05] MEDS ORDERED: Lorazepam 2 MG/ML VIAL SLOW IVP SCH (22:45)
[2023-01-06] MEDS ORDERED: Ipratropium Bromide 2.5 ml Neb ONE (00:17)
[2023-01-06] MEDS ORDERED: Magnesium 2 GM/50 ML(in water) 2 GM in Premix Bag 1 BAG IVPB SCH (00:30)
[2023-01-06] MEDS ORDERED: Ipratropium/Albuterol 3 ML NEB NEB SCH (00:30)
[2023-01-06] MEDS ORDERED: methylPREDNISolone Sod Succ 40 MG VIAL IVP SCH (00:45)
[2023-01-06] MEDS: cefTRIAXone\\ROCEPHIN 2 GM in Sodium Chloride 0.9% 100 ML IVPB SCH (02:50)
[2023-01-06 03:53] LABS: #Monocytes 0.4 10x3/uL (0.0-1.1); #Neutrophils 13.8 10x3/uL (1.5-8.4); %Basophils 0.1 % (0.0-2.0); %Eosinophils 0.1 % (0.0-6.0); %Lymphocytes 6.5 % (18.0-47.0); %Monocytes 2.8 % (0.0-10.0); Hemoglobin 13.8 g/dL (12.0-15.5); Mean Corpuscular HGB CONC 31.8 g/dL (32.0-36.0); Mean Corpuscular Hemoglobin 30.4 pg (27.0-33.0); Mean Corpuscular Volume 95.6 fl (81.6-98.3); Mean Platelet Volume 10.4 fl (7.4-10.4); Platelet Count 178 10x3/uL (150-450); Red Blood Cell (RBC) Count 4.54 10x6/uL (3.90-5.03); White Blood Cell (WBC) Count 15.3 10x3/uL (3.5-10.5)
[2023-01-06 04:08] LABS: Anion Gap 15 mmol/L (10-20); BUN (Urea Nitrogen) 24 mg/dL (9.8-20.1); Calc. Creatinine Clearance 65 mL/min (70-130); Calcium 10.9 mg/dL (7.8-10.44); Carbon Dioxide 30 mmol/L (23-31); Chloride 106 mmol/L (98-107); Estimated GFR 82; Glucose 123 mg/dL (80-115); Potassium 4.1 mmol/L (3.5-5.1); Sodium 147 mmol/L (136-145)
[2023-01-06] MEDS: Ipratropium Bromide 2.5 ml Neb NEB SCH ×5 (04:29→19:56)
[2023-01-06 05:03] LABS: Actual Bicarbonate (HCO3a) 33.2 mEq/L (22-28); Base Excess (BEa) 6.9 mEq/L (-2.0 to +3.0); CO2 Tension 54.2 mmHg (35.0-45.0); Calcium, Ionized (arterial) 1.31 mmol/L (1.12-1.30); Carboxyhemoglobin (COHb) 0.8 gm% (0.0-3.0); O2 Tension (PaO2), arterial 59.8 mmHg (> 80.0); Potassium - ABG Lab 3.9 mmol/L (3.70-5.30); Puncture Site RRA; pH, Arterial 7.41 (7.35-7.45)
[2023-01-06] MEDS: Dexmedetomidine In 0.9 % NaCl 100 ML IVPB SCH ×4 (05:48→23:04)
[2023-01-06] MEDS ORDERED: Mometasone/Formoterol 200/5 60 PUFF INH SCH (06:30)
[2023-01-06] MEDS: guaiFENesin ER 600 MG TAB PO SCH ×3 (07:38→20:22)
[2023-01-06] MEDS: clonazePAM 0.5 MG TAB PO SCH ×3 (07:38→20:22)
[2023-01-06] MEDS: Sertraline 25 MG TAB PO SCH ×2 (07:40→07:52)
[2023-01-06] MEDS: methylPREDNISolone Sod Succ 40 MG VIAL IVP SCH (07:40)
[2023-01-06] MEDS: Pantoprazole 40 MG VIAL IVP SCH (07:40)
[2023-01-06] MEDS: Lactated Ringer's 1,000 ML IV SCH (08:14)
[2023-01-06] MEDS: Budesonide 0.5 MG/2 ML NEB NEB SCH ×2 (10:45→19:58)
[2023-01-06] MEDS ORDERED: Scopolamine 1.5 mg/72 hour Patch TD SCH (16:00)
[2023-01-06] MEDS ORDERED: Lorazepam 2 MG/ML VIAL SLOW IVP SCH (20:45)
[2023-01-06] MEDS: Labetalol HCl 100 MG/20 ML VIAL SLOW IVP PRN (23:17)
[2023-01-07] MEDS: Ipratropium Bromide 2.5 ml Neb NEB SCH ×7 (00:05→23:55)
[2023-01-07] MEDS: cefTRIAXone\\ROCEPHIN 2 GM in Sodium Chloride 0.9% 100 ML IVPB SCH (03:16)
[2023-01-07] MEDS: Lactated Ringer's 1,000 ML IV SCH (03:16)
[2023-01-07 03:47] LABS: #Monocytes 0.8 10x3/uL (0.0-1.1); #Neutrophils 15.8 10x3/uL (1.5-8.4); %Basophils 0.2 % (0.0-2.0); %Eosinophils 0.2 % (0.0-6.0); %Lymphocytes 6.7 % (18.0-47.0); %Monocytes 4.6 % (0.0-10.0); %Neutrophils 87.8 % (40.0-75.0); Hemoglobin 13.6 g/dL (12.0-15.5); Mean Corpuscular HGB CONC 32.2 g/dL (32.0-36.0); Mean Corpuscular Hemoglobin 30.3 pg (27.0-33.0); Mean Corpuscular Volume 94.2 fl (81.6-98.3); Mean Platelet Volume 10.7 fl (7.4-10.4); Platelet Count 182 10x3/uL (150-450); Red Blood Cell (RBC) Count 4.49 10x6/uL (3.90-5.03)
[2023-01-07] MEDS: Dexmedetomidine In 0.9 % NaCl 100 ML IVPB SCH ×4 (03:55→23:00)
[2023-01-07 03:57] LABS: ALT (SGPT) 184 U/L (8-55); AST (SGOT) 70 U/L (5-34); Albumin 3.3 g/dL (3.4-4.8); Alkaline Phosphatase 50 U/L (40-110); Anion Gap 13 mmol/L (10-20); BUN (Urea Nitrogen) 30 mg/dL (9.8-20.1); Bilirubin, Total 0.7 mg/dL (0.2-1.2); Calc. Creatinine Clearance 56 mL/min (70-130); Carbon Dioxide 29 mmol/L (23-31); Chloride 107 mmol/L (98-107); Estimated GFR 68; Globulin 2.6 g/dL (2.4-3.5); Glucose 103 mg/dL (80-115); Magnesium 2.2 mg/dL (1.6-2.6); Potassium 3.9 mmol/L (3.5-5.1); Protein, Total 5.9 g/dL (5.8-8.1); Sodium 145 mmol/L (136-145)
[2023-01-07 05:24] LABS: Platelet Clumps SLIGHT; Platelet Morphology Comment Appears Adequate
[2023-01-07] MEDS ORDERED: Levalbuterol HCl 0.63 MG/3 ML NEB NEB PRN (08:00)
[2023-01-07] MEDS: methylPREDNISolone Sod Succ 40 MG VIAL IVP SCH (08:59)
[2023-01-07] MEDS: Pantoprazole 40 MG VIAL IVP SCH (08:59)
[2023-01-07] MEDS ORDERED: Scopolamine 1.5 mg/72 hour Patch TD SCH (09:00)
[2023-01-07] MEDS: Levalbuterol HCl 0.63 MG/3 ML NEB NEB SCH ×4 (10:35→23:52)
[2023-01-07] MEDS: Lorazepam 2 MG/ML VIAL SLOW IVP SCH ×2 (12:15→12:18)
[2023-01-07] MEDS ORDERED: Lorazepam 2 MG/ML VIAL SLOW IVP SCH ×3 (12:15→13:30)
[2023-01-07] MEDS: clonazePAM 0.5 MG TAB PO SCH ×2 (12:18→20:47)
[2023-01-07] MEDS: guaiFENesin ER 600 MG TAB PO SCH (12:18)
[2023-01-07] MEDS: Sertraline 25 MG TAB PO SCH (12:19)
[2023-01-07] MEDS ORDERED: Morphine 2 MG/ML VIAL SLOW IVP SCH (13:45)
[2023-01-07] MEDS: Morphine 2 MG/ML VIAL SLOW IVP PRN (17:55)
[2023-01-07] MEDS: Budesonide 0.5 MG/2 ML NEB NEB SCH (20:17)
[2023-01-07] MEDS ORDERED: Sertraline 25 MG TAB PO SCH (20:30)
[2023-01-07] MEDS: guaiFENesin 100 MG/5 ML UDCUP PO SCH (20:47)
[2023-01-08] MEDS ORDERED: Lorazepam 2 MG/ML VIAL SLOW IVP SCH (00:45)
[2023-01-08] MEDS: Lactated Ringer's 1,000 ML IV SCH (01:04)
[2023-01-08] MEDS: guaiFENesin 100 MG/5 ML UDCUP PO SCH ×6 (01:05→20:01)
[2023-01-08] MEDS: cefTRIAXone\\ROCEPHIN 2 GM in Sodium Chloride 0.9% 100 ML IVPB SCH (02:08)
[2023-01-08] MEDS: Levalbuterol HCl 0.63 MG/3 ML NEB NEB SCH ×6 (04:12→22:37)
[2023-01-08] MEDS: Ipratropium Bromide 2.5 ml Neb NEB SCH ×6 (04:14→22:37)
[2023-01-08 04:19] LABS: #Monocytes 0.8 10x3/uL (0.0-1.1); #Neutrophils 12.8 10x3/uL (1.5-8.4); %Basophils 0.3 % (0.0-2.0); %Eosinophils 0.1 % (0.0-6.0); %Lymphocytes 7.9 % (18.0-47.0); %Monocytes 5.3 % (0.0-10.0); %Neutrophils 84.5 % (40.0-75.0); Hemoglobin 14.3 g/dL (12.0-15.5); Mean Corpuscular HGB CONC 32.3 g/dL (32.0-36.0); Mean Corpuscular Hemoglobin 30.2 pg (27.0-33.0); Mean Corpuscular Volume 93.7 fl (81.6-98.3); Mean Platelet Volume 10.7 fl (7.4-10.4); Platelet Count 212 10x3/uL (150-450); RBC Distribution Width 13.1 % (11.5-14.5); Red Blood Cell (RBC) Count 4.73 10x6/uL (3.90-5.03); White Blood Cell (WBC) Count 15.2 10x3/uL (3.5-10.5)
[2023-01-08 04:23] LABS: Phosphorus 2.7 mg/dL (2.3-4.7)
[2023-01-08 04:27] LABS: ALT (SGPT) 171 U/L (8-55); AST (SGOT) 45 U/L (5-34); Albumin 3.4 g/dL (3.4-4.8); Alkaline Phosphatase 57 U/L (40-110); Anion Gap 17 mmol/L (10-20); BUN (Urea Nitrogen) 32 mg/dL (9.8-20.1); Bilirubin, Total 0.7 mg/dL (0.2-1.2); Calc. Creatinine Clearance 55 mL/min (70-130); Calcium 10.4 mg/dL (7.8-10.44); Carbon Dioxide 29 mmol/L (23-31); Chloride 111 mmol/L (98-107); Estimated GFR 71; Globulin 2.2 g/dL (2.4-3.5); Glucose 142 mg/dL (80-115); Magnesium 2.1 mg/dL (1.6-2.6); Potassium 3.7 mmol/L (3.5-5.1); Protein, Total 5.6 g/dL (5.8-8.1)
[2023-01-08 04:31] LABS: Sodium 153 mmol/L (136-145)
[2023-01-08] MEDS: Dextrose 5% w/ 20 mEq KCl 1,000 ML IV SCH ×3 (05:23→19:50)
[2023-01-08] MEDS: Budesonide 0.5 MG/2 ML NEB NEB SCH ×2 (06:20→19:18)
[2023-01-08] MEDS: Guaifenesin DM 100-10/5 ML UDCUP PO PRN (07:34)
[2023-01-08] MEDS: clonazePAM 0.5 MG TAB PO SCH ×2 (07:35→20:01)
[2023-01-08] MEDS: Sertraline 25 MG TAB PO SCH (07:35)
[2023-01-08] MEDS: methylPREDNISolone Sod Succ 40 MG VIAL IVP SCH (07:44)
[2023-01-08] MEDS: Pantoprazole 40 MG VIAL IVP SCH (08:11)
[2023-01-08] MEDS: ALPRAZolam 0.25 MG TAB PER TUBE PRN ×2 (08:46→23:04)
[2023-01-08] MEDS: Morphine 2 MG/ML VIAL SLOW IVP PRN (09:35)
[2023-01-08] MEDS: Dexmedetomidine In 0.9 % NaCl 100 ML IVPB SCH ×2 (09:56→16:05)
[2023-01-08 10:19] LABS: Anion Gap 18 mmol/L (10-20); BUN (Urea Nitrogen) 31 mg/dL (9.8-20.1); Calc. Creatinine Clearance 57 mL/min (70-130); Calcium 10.5 mg/dL (7.8-10.44); Carbon Dioxide 23 mmol/L (23-31); Chloride 113 mmol/L (98-107); Estimated GFR 70; Glucose 165 mg/dL (80-115); Sodium 150 mmol/L (136-145)
[2023-01-08 10:29] LABS: Potassium 3.8 mmol/L (3.5-5.1)
[2023-01-08] MEDS: HYDROcodone/Acetaminophen 5/325 mg Tablet PO PRN ×2 (12:58→20:02)
[2023-01-08 14:07] LABS: Anion Gap 15 mmol/L (10-20); BUN (Urea Nitrogen) 29 mg/dL (9.8-20.1); Calc. Creatinine Clearance 56 mL/min (70-130); Calcium 10.5 mg/dL (7.8-10.44); Carbon Dioxide 30 mmol/L (23-31); Chloride 110 mmol/L (98-107); Estimated GFR 68; Glucose 262 mg/dL (80-115); Potassium 3.6 mmol/L (3.5-5.1)
[2023-01-08 14:14] LABS: Sodium 151 mmol/L (136-145)
[2023-01-08] MEDS: HumaLOG 300 UNITS/3 ML VIAL SC PRN ×2 (14:30→18:03)
[2023-01-08 17:56] LABS: Anion Gap 13 mmol/L (10-20); BUN (Urea Nitrogen) 29 mg/dL (9.8-20.1); Calc. Creatinine Clearance 62 mL/min (70-130); Calcium 10.1 mg/dL (7.8-10.44); Carbon Dioxide 27 mmol/L (23-31); Chloride 112 mmol/L (98-107); Estimated GFR 76; Glucose 188 mg/dL (80-115); Potassium 3.9 mmol/L (3.5-5.1); Sodium 148 mmol/L (136-145)
[2023-01-09] MEDS: Dexmedetomidine In 0.9 % NaCl 100 ML IVPB SCH ×2 (00:15→07:56)
[2023-01-09] MEDS: guaiFENesin 100 MG/5 ML UDCUP PO SCH ×6 (02:00→20:01)
[2023-01-09] MEDS: HYDROcodone/Acetaminophen 5/325 mg Tablet PO PRN ×4 (02:02→21:54)
[2023-01-09] MEDS: Ipratropium Bromide 2.5 ml Neb NEB SCH ×6 (02:37→22:40)
[2023-01-09] MEDS: Levalbuterol HCl 0.63 MG/3 ML NEB NEB SCH ×6 (02:40→22:45)
[2023-01-09 04:19] LABS: Anion Gap 17 mmol/L (10-20); BUN (Urea Nitrogen) 29 mg/dL (9.8-20.1); Calc. Creatinine Clearance 68 mL/min (70-130); Calcium 9.8 mg/dL (7.8-10.44); Carbon Dioxide 26 mmol/L (23-31); Chloride 110 mmol/L (98-107); Estimated GFR 86; Glucose 165 mg/dL (80-115); Potassium 4.9 mmol/L (3.5-5.1); Sodium 148 mmol/L (136-145)
[2023-01-09] MEDS: HumaLOG 300 UNITS/3 ML VIAL SC PRN ×2 (04:22→17:26)
[2023-01-09 04:24] LABS: #Eosinphils 0.1 10x3/uL (0.0-0.5); #Monocytes 0.9 10x3/uL (0.0-1.1); %Basophils 0.2 % (0.0-2.0); %Eosinophils 0.4 % (0.0-6.0); %Lymphocytes 7.2 % (18.0-47.0); %Monocytes 5.6 % (0.0-10.0); Hemoglobin 12.6 g/dL (12.0-15.5); Mean Corpuscular HGB CONC 32.1 g/dL (32.0-36.0); Mean Corpuscular Hemoglobin 30.5 pg (27.0-33.0); Mean Corpuscular Volume 95.2 fl (81.6-98.3); Mean Platelet Volume 10.5 fl (7.4-10.4); Platelet Count 184 10x3/uL (150-450); RBC Distribution Width 13.2 % (11.5-14.5); Red Blood Cell (RBC) Count 4.13 10x6/uL (3.90-5.03); White Blood Cell (WBC) Count 15.2 10x3/uL (3.5-10.5)
[2023-01-09] MEDS: Budesonide 0.5 MG/2 ML NEB NEB SCH ×2 (06:45→19:20)
[2023-01-09] MEDS: Dextrose 5% w/ 20 mEq KCl 1,000 ML IV SCH (07:56)
[2023-01-09] MEDS: Pantoprazole 40 MG VIAL IVP SCH (07:56)
[2023-01-09] MEDS: methylPREDNISolone Sod Succ 40 MG VIAL IVP SCH ×3 (07:57→20:00)
[2023-01-09] MEDS: clonazePAM 0.5 MG TAB PO SCH ×2 (07:57→20:00)
[2023-01-09] MEDS: Sertraline 25 MG TAB PO SCH (07:59)
[2023-01-09] MEDS: Dextrose 5% in Water 1,000 ML IV SCH (10:24)
[2023-01-09] MEDS: Bisacodyl 5 MG TAB PO PRN (10:25)
[2023-01-09] MEDS: ALPRAZolam 0.25 MG TAB PER TUBE PRN ×2 (10:25→17:16)
[2023-01-10] MEDS: guaiFENesin 100 MG/5 ML UDCUP PO SCH ×6 (00:23→19:55)
[2023-01-10] MEDS: ALPRAZolam 0.25 MG TAB PER TUBE PRN ×2 (01:08→18:04)
[2023-01-10] MEDS: Labetalol HCl 100 MG/20 ML VIAL SLOW IVP PRN (01:40)
[2023-01-10] MEDS: Ipratropium Bromide 2.5 ml Neb NEB SCH ×6 (02:30→22:30)
[2023-01-10] MEDS: Levalbuterol HCl 0.63 MG/3 ML NEB NEB SCH ×2 (02:35→07:35)
[2023-01-10] MEDS: Dextrose 5% in Water 1,000 ML IV SCH (02:52)
[2023-01-10] MEDS ORDERED: Melatonin 3 MG TAB PO SCH (05:00)
[2023-01-10] MEDS: HumaLOG 300 UNITS/3 ML VIAL SC PRN ×3 (05:22→18:42)
[2023-01-10] MEDS: Budesonide 0.5 MG/2 ML NEB NEB SCH ×2 (07:24→19:15)
[2023-01-10] MEDS: Pantoprazole 40 MG VIAL IVP SCH (08:23)
[2023-01-10] MEDS: Sertraline 25 MG TAB PO SCH (08:24)
[2023-01-10] MEDS: methylPREDNISolone Sod Succ 40 MG VIAL IVP SCH ×2 (08:24→19:55)
[2023-01-10] MEDS: clonazePAM 0.5 MG TAB PO SCH ×2 (08:27→19:55)
[2023-01-10 08:37] LABS: #Eosinphils 0.1 10x3/uL (0.0-0.5); #Neutrophils 17.3 10x3/uL (1.5-8.4); %Basophils 0.2 % (0.0-2.0); %Eosinophils 0.4 % (0.0-6.0); %Lymphocytes 6.5 % (18.0-47.0); %Monocytes 5.2 % (0.0-10.0); %Neutrophils 87.3 % (40.0-75.0); Hemoglobin 14.5 g/dL (12.0-15.5); Mean Corpuscular HGB CONC 31.8 g/dL (32.0-36.0); Mean Corpuscular Hemoglobin 30.2 pg (27.0-33.0); Mean Platelet Volume 9.9 fl (7.4-10.4); Platelet Count 220 10x3/uL (150-450); RBC Distribution Width 12.9 % (11.5-14.5); White Blood Cell (WBC) Count 19.8 10x3/uL (3.5-10.5)
[2023-01-10 10:01] LABS: Anion Gap 15 mmol/L (10-20); Calc. Creatinine Clearance 72 mL/min (70-130); Calcium 10.3 mg/dL (7.8-10.44); Carbon Dioxide 30 mmol/L (23-31); Chloride 104 mmol/L (98-107); Estimated GFR 90; Glucose 149 mg/dL (80-115); Potassium 6.5 mmol/L (3.5-5.1); Sodium 142 mmol/L (136-145)
[2023-01-10 10:03] LABS: BUN (Urea Nitrogen) 20 mg/dL (9.8-20.1)
[2023-01-10] MEDS: Ondansetron PF 4 MG/2 ML Vial IVP PRN (10:33)
[2023-01-10] MEDS: Acetaminophen 325 MG TAB PO PRN (16:08)
[2023-01-10 16:45] LABS: Potassium 4.1 mmol/L (3.5-5.1)
[2023-01-11] MEDS: guaiFENesin 100 MG/5 ML UDCUP PO SCH ×6 (00:01→20:25)
[2023-01-11] MEDS: Ipratropium Bromide 2.5 ml Neb NEB SCH ×6 (03:00→23:45)
[2023-01-11] MEDS: ALPRAZolam 0.25 MG TAB PER TUBE PRN ×3 (04:09→11:44)
[2023-01-11 04:22] LABS: #Monocytes 0.5 10x3/uL (0.0-1.1); #Neutrophils 17.1 10x3/uL (1.5-8.4); %Basophils 0.1 % (0.0-2.0); %Eosinophils 0.1 % (0.0-6.0); %Lymphocytes 6.1 % (18.0-47.0); %Monocytes 2.6 % (0.0-10.0); %Neutrophils 90.6 % (40.0-75.0); Hemoglobin 14.2 g/dL (12.0-15.5); Mean Corpuscular HGB CONC 32.6 g/dL (32.0-36.0); Mean Corpuscular Hemoglobin 30.7 pg (27.0-33.0); Mean Corpuscular Volume 94.2 fl (81.6-98.3); Mean Platelet Volume 9.8 fl (7.4-10.4); Platelet Count 222 10x3/uL (150-450); RBC Distribution Width 13.1 % (11.5-14.5); Red Blood Cell (RBC) Count 4.63 10x6/uL (3.90-5.03); White Blood Cell (WBC) Count 18.8 10x3/uL (3.5-10.5)
[2023-01-11 04:30] LABS: Phosphorus 2.3 mg/dL (2.3-4.7)
[2023-01-11 04:32] LABS: ALT (SGPT) 92 U/L (8-55); AST (SGOT) 27 U/L (5-34); Albumin 3.4 g/dL (3.4-4.8); Alkaline Phosphatase 62 U/L (40-110); Anion Gap 11 mmol/L (10-20); BUN (Urea Nitrogen) 16 mg/dL (9.8-20.1); Bilirubin, Total 0.6 mg/dL (0.2-1.2); Calc. Creatinine Clearance 69 mL/min (70-130); Calcium 10.6 mg/dL (7.8-10.44); Carbon Dioxide 34 mmol/L (23-31); Chloride 100 mmol/L (98-107); Estimated GFR 86; Globulin 2.6 g/dL (2.4-3.5); Glucose 162 mg/dL (80-115); Magnesium 1.8 mg/dL (1.6-2.6); Potassium 4.2 mmol/L (3.5-5.1); Sodium 141 mmol/L (136-145)
[2023-01-11] MEDS: Pantoprazole 40 MG VIAL IVP SCH (07:55)
[2023-01-11] MEDS: clonazePAM 0.5 MG TAB PO SCH ×2 (07:56→20:25)
[2023-01-11] MEDS: Sertraline 25 MG TAB PO SCH (07:56)
[2023-01-11] MEDS ORDERED: Magnesium 2 GM/50 ML(in water) 2 GM in Premix Bag 1 BAG IVPB SCH (08:00)
[2023-01-11] MEDS: methylPREDNISolone Sod Succ 40 MG VIAL IVP SCH ×2 (08:07→20:25)
[2023-01-11] MEDS: Budesonide 0.5 MG/2 ML NEB NEB SCH ×2 (08:49→20:10)
[2023-01-11] MEDS ORDERED: Lorazepam 2 MG/ML VIAL SLOW IVP SCH (13:00)
[2023-01-11] MEDS: HumaLOG 300 UNITS/3 ML VIAL SC PRN (23:56)
[2023-01-12] MEDS: guaiFENesin 100 MG/5 ML UDCUP PO SCH ×6 (01:55→20:25)
[2023-01-12] MEDS: Ipratropium Bromide 2.5 ml Neb NEB SCH ×6 (03:20→22:30)
[2023-01-12 03:44] LABS: #Monocytes 0.3 10x3/uL (0.0-1.1); #Neutrophils 12.3 10x3/uL (1.5-8.4); %Basophils 0.1 % (0.0-2.0); %Lymphocytes 4.3 % (18.0-47.0); %Monocytes 2.1 % (0.0-10.0); %Neutrophils 93.1 % (40.0-75.0); Hemoglobin 12.8 g/dL (12.0-15.5); Mean Corpuscular HGB CONC 32.7 g/dL (32.0-36.0); Mean Corpuscular Hemoglobin 30.3 pg (27.0-33.0); Mean Corpuscular Volume 92.7 fl (81.6-98.3); Mean Platelet Volume 9.8 fl (7.4-10.4); Platelet Count 206 10x3/uL (150-450); RBC Distribution Width 13.2 % (11.5-14.5); Red Blood Cell (RBC) Count 4.23 10x6/uL (3.90-5.03); White Blood Cell (WBC) Count 13.2 10x3/uL (3.5-10.5)
[2023-01-12 03:49] LABS: Anion Gap 10 mmol/L (10-20); BUN (Urea Nitrogen) 20 mg/dL (9.8-20.1); Calc. Creatinine Clearance 60 mL/min (70-130); Calcium 10.5 mg/dL (7.8-10.44); Carbon Dioxide 36 mmol/L (23-31); Chloride 99 mmol/L (98-107); Estimated GFR 79; Glucose 179 mg/dL (80-115); Potassium 3.9 mmol/L (3.5-5.1); Sodium 141 mmol/L (136-145)
[2023-01-12 04:08] LABS: Free T4 (Free Thyroxine) 0.91 ng/dL (0.70-1.48); Thyroid Stimulating Hormone 1.5702 uIU/mL (0.35-4.94)
[2023-01-12] MEDS: HYDROcodone/Acetaminophen 5/325 mg Tablet PO PRN ×3 (05:44→20:10)
[2023-01-12] MEDS: HumaLOG 300 UNITS/3 ML VIAL SC PRN ×2 (06:19→09:08)
[2023-01-12] MEDS: Budesonide 0.5 MG/2 ML NEB NEB SCH ×2 (07:48→20:00)
[2023-01-12] MEDS: Pantoprazole 40 MG VIAL IVP SCH (09:05)
[2023-01-12] MEDS: ALPRAZolam 0.25 MG TAB PER TUBE PRN ×2 (09:06→14:07)
[2023-01-12] MEDS: Sertraline 25 MG TAB PO SCH (09:06)
[2023-01-12] MEDS: methylPREDNISolone Sod Succ 40 MG VIAL IVP SCH (09:08)
[2023-01-12] MEDS ORDERED: Lorazepam 2 MG/ML VIAL SLOW IVP PRN (10:15)
[2023-01-12] MEDS ORDERED: clonazePAM 0.5 MG TAB PO SCH (10:30)
[2023-01-12] MEDS: clonazePAM 0.5 MG TAB PO SCH (20:26)
[2023-01-12] MEDS: Ondansetron PF 4 MG/2 ML Vial IVP PRN (21:51)
[2023-01-12] MEDS ORDERED: Senokot S 8.6-50 MG TAB PO SCH (23:00)
[2023-01-12] MEDS ORDERED: Bisacodyl 10 MG SUPP PR SCH (23:00)
[2023-01-13] MEDS: guaiFENesin 100 MG/5 ML UDCUP PO SCH ×6 (01:50→22:07)
[2023-01-13] MEDS: Ondansetron PF 4 MG/2 ML Vial IVP PRN ×2 (01:50→07:38)
[2023-01-13] MEDS: ALPRAZolam 0.25 MG TAB PER TUBE PRN (02:12)
[2023-01-13] MEDS ORDERED: Scopolamine 1.5 mg/72 hour Patch TD SCH (02:30)
[2023-01-13] MEDS ORDERED: Promethazine HCl 12.5 MG in Sodium Chloride 0.9% 50 ML IVPB SCH (02:30)
[2023-01-13] MEDS: Ipratropium Bromide 2.5 ml Neb NEB SCH ×6 (02:40→21:50)
[2023-01-13 04:58] LABS: #Eosinphils 0.2 10x3/uL (0.0-0.5); #Monocytes 0.2 10x3/uL (0.0-1.1); #Neutrophils 6.6 10x3/uL (1.5-8.4); %Basophils 0.1 % (0.0-2.0); %Lymphocytes 9.7 % (18.0-47.0); %Monocytes 2.9 % (0.0-10.0); %Neutrophils 84.8 % (40.0-75.0); Mean Corpuscular HGB CONC 33.6 g/dL (32.0-36.0); Mean Corpuscular Volume 92.5 fl (81.6-98.3); Mean Platelet Volume 10.5 fl (7.4-10.4); Platelet Count 164 10x3/uL (150-450); RBC Distribution Width 13.3 % (11.5-14.5); Red Blood Cell (RBC) Count 4.51 10x6/uL (3.90-5.03); White Blood Cell (WBC) Count 7.8 10x3/uL (3.5-10.5)
[2023-01-13 05:20] LABS: Anion Gap 15 mmol/L (10-20); BUN (Urea Nitrogen) 19 mg/dL (9.8-20.1); Calc. Creatinine Clearance 59 mL/min (70-130); Calcium 10.2 mg/dL (7.8-10.44); Carbon Dioxide 33 mmol/L (23-31); Chloride 100 mmol/L (98-107); Estimated GFR 80; Glucose 91 mg/dL (80-115); Potassium 3.7 mmol/L (3.5-5.1); Sodium 144 mmol/L (136-145)
[2023-01-13] MEDS: Budesonide 0.5 MG/2 ML NEB NEB SCH ×2 (06:40→21:50)
[2023-01-13] MEDS: Sertraline 25 MG TAB PO SCH (07:37)
[2023-01-13] MEDS: Senokot S 8.6-50 MG TAB PO SCH ×2 (07:37→22:07)
[2023-01-13] MEDS: Pantoprazole 40 MG VIAL IVP SCH (07:37)
[2023-01-13] MEDS: clonazePAM 0.5 MG TAB PO SCH ×2 (07:37→22:07)
[2023-01-13] MEDS ORDERED: Iopamidol 300 61% 100 ML VIAL FS ONE (09:26)
[2023-01-13] MEDS ORDERED: Bisacodyl 10 MG SUPP PR SCH (09:30)
[2023-01-13] MEDS: methylPREDNISolone Sod Succ 40 MG VIAL IVP SCH (09:45)
[2023-01-14] MEDS: Ondansetron PF 4 MG/2 ML Vial IVP PRN (01:40)
[2023-01-14] MEDS: ALPRAZolam 0.25 MG TAB PER TUBE PRN ×2 (01:40→12:30)
[2023-01-14] MEDS: guaiFENesin 100 MG/5 ML UDCUP PO SCH ×6 (01:42→21:04)
[2023-01-14] MEDS: Ipratropium Bromide 2.5 ml Neb NEB SCH ×6 (02:40→23:25)
[2023-01-14 03:05] LABS: #Eosinphils 0.2 10x3/uL (0.0-0.5); #Monocytes 0.4 10x3/uL (0.0-1.1); #Neutrophils 5.6 10x3/uL (1.5-8.4); %Basophils 0.1 % (0.0-2.0); %Eosinophils 2.2 % (0.0-6.0); %Lymphocytes 11.1 % (18.0-47.0); %Monocytes 5.3 % (0.0-10.0); Hemoglobin 12.2 g/dL (12.0-15.5); Mean Corpuscular HGB CONC 32.9 g/dL (32.0-36.0); Mean Corpuscular Hemoglobin 30.4 pg (27.0-33.0); Mean Corpuscular Volume 92.5 fl (81.6-98.3); Mean Platelet Volume 9.6 fl (7.4-10.4); Platelet Count 185 10x3/uL (150-450); RBC Distribution Width 13.1 % (11.5-14.5); Red Blood Cell (RBC) Count 4.01 10x6/uL (3.90-5.03); White Blood Cell (WBC) Count 6.9 10x3/uL (3.5-10.5)
[2023-01-14 03:22] LABS: Anion Gap 11 mmol/L (10-20); BUN (Urea Nitrogen) 12 mg/dL (9.8-20.1); Calc. Creatinine Clearance 61 mL/min (70-130); Calcium 10.1 mg/dL (7.8-10.44); Carbon Dioxide 36 mmol/L (23-31); Chloride 98 mmol/L (98-107); Estimated GFR 86; Glucose 105 mg/dL (80-115); Potassium 3.1 mmol/L (3.5-5.1); Sodium 142 mmol/L (136-145)
[2023-01-14] MEDS: Budesonide 0.5 MG/2 ML NEB NEB SCH ×2 (06:20→21:34)
[2023-01-14] MEDS ORDERED: Potassium Chloride 20 MEQ TAB PO SCH (08:00)
[2023-01-14] MEDS: clonazePAM 0.5 MG TAB PO SCH ×2 (08:11→21:05)
[2023-01-14] MEDS: Senokot S 8.6-50 MG TAB PO SCH ×3 (08:12→21:04)
[2023-01-14] MEDS: Sertraline 25 MG TAB PO SCH (08:12)
[2023-01-14] MEDS: Pantoprazole 40 MG VIAL IVP SCH (08:12)
[2023-01-14] MEDS: methylPREDNISolone Sod Succ 40 MG VIAL IVP SCH ×3 (08:14→18:20)
[2023-01-14] MEDS: HYDROcodone/Acetaminophen 5/325 mg Tablet PO PRN (15:40)
[2023-01-15] MEDS: methylPREDNISolone Sod Succ 40 MG VIAL IVP SCH ×4 (00:34→17:34)
[2023-01-15] MEDS: guaiFENesin 100 MG/5 ML UDCUP PO SCH ×6 (02:19→20:28)
[2023-01-15] MEDS: Ipratropium Bromide 2.5 ml Neb NEB SCH ×5 (02:55→21:30)
[2023-01-15 04:42] LABS: Anion Gap 13 mmol/L (10-20); BUN (Urea Nitrogen) 13 mg/dL (9.8-20.1); Calc. Creatinine Clearance 59 mL/min (70-130); Calcium 10.6 mg/dL (7.8-10.44); Carbon Dioxide 34 mmol/L (23-31); Chloride 95 mmol/L (98-107); Estimated GFR 85; Glucose 163 mg/dL (80-115); Hemoglobin 12.7 g/dL (12.0-15.5); Mean Corpuscular HGB CONC 34.2 g/dL (32.0-36.0); Mean Corpuscular Hemoglobin 30.8 pg (27.0-33.0); Mean Corpuscular Volume 89.8 fl (81.6-98.3); Mean Platelet Volume 10.1 fl (7.4-10.4); Platelet Count 201 10x3/uL (150-450); Potassium 3.4 mmol/L (3.5-5.1); RBC Distribution Width 13.1 % (11.5-14.5); Red Blood Cell (RBC) Count 4.13 10x6/uL (3.90-5.03); Sodium 139 mmol/L (136-145); White Blood Cell (WBC) Count 9.1 10x3/uL (3.5-10.5)
[2023-01-15] MEDS: HumaLOG 300 UNITS/3 ML VIAL SC PRN ×3 (05:38→17:31)
[2023-01-15 05:58] LABS: MDiff Complete? YES
[2023-01-15 06:01] LABS: Band 5 % (5-11); Lymphocytes 3 % (21-51); Monocytes 3 % (0-10); Neutrophil 89 % (42-75)
[2023-01-15 06:05] LABS: Platelet Morphology Comment Appears Adequate; RBC Morphology Normal
[2023-01-15] MEDS: Budesonide 0.5 MG/2 ML NEB NEB SCH ×2 (06:55→21:31)
[2023-01-15] MEDS ORDERED: Potassium Chloride 20 MEQ TAB PO SCH (08:00)
[2023-01-15] MEDS ORDERED: Potassium Bicarbonate/Cit Ac 20 MEQ TAB PO SCH (08:00)
[2023-01-15] MEDS: Pantoprazole 40 MG VIAL IVP SCH (08:15)
[2023-01-15] MEDS: Sertraline 25 MG TAB PO SCH (08:20)
[2023-01-15] MEDS: clonazePAM 0.5 MG TAB PO SCH ×2 (08:21→20:25)
[2023-01-15] MEDS: Senokot S 8.6-50 MG TAB PO SCH ×2 (08:21→20:25)
[2023-01-15] MEDS: HYDROcodone/Acetaminophen 5/325 mg Tablet PO PRN (11:23)
[2023-01-15] MEDS: ALPRAZolam 0.25 MG TAB PER TUBE PRN ×2 (12:54→20:25)
[2023-01-15] MEDS: Ondansetron PF 4 MG/2 ML Vial IVP PRN (17:07)
[2023-01-16] MEDS: HumaLOG 300 UNITS/3 ML VIAL SC PRN ×2 (00:08→18:34)
[2023-01-16] MEDS: methylPREDNISolone Sod Succ 40 MG VIAL IVP SCH ×3 (00:08→12:04)
[2023-01-16] MEDS: guaiFENesin 100 MG/5 ML UDCUP PO SCH ×6 (00:16→20:34)
[2023-01-16] MEDS: Ipratropium Bromide 2.5 ml Neb NEB SCH ×7 (00:35→23:48)
[2023-01-16 04:33] LABS: #Monocytes 0.3 10x3/uL (0.0-1.1); %Basophils 0.1 % (0.0-2.0); %Lymphocytes 3.7 % (18.0-47.0); %Monocytes 2.2 % (0.0-10.0); %Neutrophils 93.5 % (40.0-75.0); Hemoglobin 13.2 g/dL (12.0-15.5); Mean Corpuscular HGB CONC 33.9 g/dL (32.0-36.0); Mean Corpuscular Hemoglobin 30.7 pg (27.0-33.0); Mean Corpuscular Volume 90.5 fl (81.6-98.3); Mean Platelet Volume 9.9 fl (7.4-10.4); Platelet Count 223 10x3/uL (150-450); RBC Distribution Width 13.3 % (11.5-14.5); White Blood Cell (WBC) Count 12.8 10x3/uL (3.5-10.5)
[2023-01-16 04:58] LABS: Anion Gap 15 mmol/L (10-20); BUN (Urea Nitrogen) 19 mg/dL (9.8-20.1); Calc. Creatinine Clearance 52 mL/min (70-130); Calcium 10.8 mg/dL (7.8-10.44); Carbon Dioxide 35 mmol/L (23-31); Chloride 95 mmol/L (98-107); Estimated GFR 76; Glucose 136 mg/dL (80-115); Potassium 3.5 mmol/L (3.5-5.1); Sodium 141 mmol/L (136-145)
[2023-01-16] MEDS: Potassium Chloride 20 MEQ in Premix Bag 1 BAG IVPB SCH ×2 (06:02→08:54)
[2023-01-16] MEDS: Budesonide 0.5 MG/2 ML NEB NEB SCH ×2 (06:39→20:31)
[2023-01-16] MEDS: ALPRAZolam 0.25 MG TAB PER TUBE PRN (08:54)
[2023-01-16] MEDS: Pantoprazole 40 MG VIAL IVP SCH (08:54)
[2023-01-16] MEDS: Senokot S 8.6-50 MG TAB PO SCH ×2 (08:54→20:34)
[2023-01-16] MEDS: clonazePAM 0.5 MG TAB PO SCH ×2 (08:54→20:34)
[2023-01-16] MEDS: Sertraline 25 MG TAB PO SCH (08:54)
[2023-01-17] MEDS: methylPREDNISolone Sod Succ 40 MG VIAL IVP SCH ×2 (00:30→12:09)
[2023-01-17] MEDS: guaiFENesin 100 MG/5 ML UDCUP PO SCH ×5 (00:30→21:05)
[2023-01-17 04:30] LABS: Anion Gap 14 mmol/L (10-20); BUN (Urea Nitrogen) 15 mg/dL (9.8-20.1); Calc. Creatinine Clearance 57 mL/min (70-130); Calcium 10.2 mg/dL (7.8-10.44); Carbon Dioxide 30 mmol/L (23-31); Chloride 99 mmol/L (98-107); Estimated GFR 85; Glucose 115 mg/dL (80-115); Magnesium 1.6 mg/dL (1.6-2.6); Potassium 3.7 mmol/L (3.5-5.1); Sodium 139 mmol/L (136-145)
[2023-01-17] MEDS: Ipratropium Bromide 2.5 ml Neb NEB SCH ×6 (04:35→23:17)
[2023-01-17] MEDS: PHOS-NAK 1 PKT PACK PO SCH ×2 (05:56→09:47)
[2023-01-17] MEDS ORDERED: Magnesium 2 GM/50 ML(in water) 2 GM in Premix Bag 1 BAG IVPB SCH (06:00)
[2023-01-17] MEDS: Budesonide 0.5 MG/2 ML NEB NEB SCH ×2 (07:33→19:47)
[2023-01-17] MEDS: HYDROcodone/Acetaminophen 5/325 mg Tablet PO PRN (07:59)
[2023-01-17] MEDS: Senokot S 8.6-50 MG TAB PO SCH ×3 (07:59→21:02)
[2023-01-17] MEDS: Sertraline 25 MG TAB PO SCH (07:59)
[2023-01-17] MEDS: ALPRAZolam 0.25 MG TAB PER TUBE PRN (07:59)
[2023-01-17] MEDS: clonazePAM 0.5 MG TAB PO SCH ×2 (07:59→21:02)
[2023-01-17] MEDS: Bisacodyl 5 MG TAB PO PRN (08:09)
[2023-01-18] MEDS: Ipratropium Bromide 2.5 ml Neb NEB SCH ×3 (04:48→11:01)
[2023-01-18 05:09] LABS: Anion Gap 16 mmol/L (10-20); BUN (Urea Nitrogen) 13 mg/dL (9.8-20.1); Calc. Creatinine Clearance 55 mL/min (70-130); Calcium 10.3 mg/dL (7.8-10.44); Carbon Dioxide 31 mmol/L (23-31); Chloride 99 mmol/L (98-107); Estimated GFR 80; Glucose 89 mg/dL (80-115); Magnesium 1.9 mg/dL (1.6-2.6); Potassium 3.7 mmol/L (3.5-5.1); Sodium 142 mmol/L (136-145)
[2023-01-18 05:19] LABS: Phosphorus 2.9 mg/dL (2.3-4.7)
[2023-01-18] MEDS ORDERED: Magnesium 2 GM/50 ML(in water) 2 GM in Premix Bag 1 BAG IVPB SCH (06:00)
[2023-01-18] MEDS: guaiFENesin 100 MG/5 ML UDCUP PO SCH ×7 (06:06→20:43)
[2023-01-18] MEDS: Budesonide 0.5 MG/2 ML NEB NEB SCH (08:02)
[2023-01-18] MEDS ORDERED: methylPREDNISolone Sod Succ 40 MG VIAL IVP SCH (09:00)
[2023-01-18] MEDS: clonazePAM 0.5 MG TAB PO SCH ×2 (09:16→20:43)
[2023-01-18] MEDS: Sertraline 25 MG TAB PO SCH (09:17)
[2023-01-18] MEDS: Bisacodyl 5 MG TAB PO PRN (11:33)
[2023-01-18] MEDS: Ondansetron PF 4 MG/2 ML Vial IVP PRN ×2 (11:34→18:48)
[2023-01-18] MEDS ORDERED: Ipratropium/Albuterol 3 ML NEB NEB PRN (12:39)
[2023-01-18] MEDS ORDERED: Promethazine HCl 12.5 MG in Sodium Chloride 0.9% 50 ML IVPB PRN (15:40)
[2023-01-18] MEDS: Mometasone/Formoterol 60 PUFF AER INH SCH (20:13)
[2023-01-18] MEDS: Senokot S 8.6-50 MG TAB PO SCH (20:43)
[2023-01-19] MEDS: Ondansetron PF 4 MG/2 ML Vial IVP PRN (02:44)
[2023-01-19] MEDS: guaiFENesin 100 MG/5 ML UDCUP PO SCH ×2 (04:15→06:20)
[2023-01-19 04:51] LABS: Anion Gap 16 mmol/L (10-20); BUN (Urea Nitrogen) 13 mg/dL (9.8-20.1); Calc. Creatinine Clearance 47 mL/min (70-130); Calcium 10.1 mg/dL (7.8-10.44); Carbon Dioxide 29 mmol/L (23-31); Chloride 99 mmol/L (98-107); Estimated GFR 69; Glucose 115 mg/dL (80-115); Magnesium 1.8 mg/dL (1.6-2.6); Potassium 3.5 mmol/L (3.5-5.1); Sodium 140 mmol/L (136-145)
[2023-01-19] MEDS ORDERED: Magnesium 2 GM/50 ML(in water) 2 GM in Premix Bag 1 BAG IVPB SCH (05:30)
[2023-01-19] MEDS ORDERED: Potassium Bicarbonate/Cit Ac 20 MEQ TAB PO SCH (05:30)
[2023-01-19] MEDS ORDERED: guaiFENesin 100 MG/5 ML UDCUP ONE ×2 (07:46→08:14)
[2023-01-19] MEDS: Mometasone/Formoterol 60 PUFF AER INH SCH ×2 (08:00→19:25)
[2023-01-19] MEDS ORDERED: predniSONE 20 MG TAB PO SCH ×2 (08:00→09:00)
[2023-01-19] MEDS: Guaifenesin DM 100-10/5 ML UDCUP PO PRN (08:11)
[2023-01-19] MEDS: Senokot S 8.6-50 MG TAB PO SCH ×2 (08:14→20:12)
[2023-01-19] MEDS: Sertraline 25 MG TAB PO SCH (08:14)
[2023-01-19] MEDS: clonazePAM 0.5 MG TAB PO SCH ×2 (08:15→20:12)
[2023-01-19] MEDS: Polyethylene Glycol 3350 17 GM Packet PO SCH (10:01)
[2023-01-19] MEDS: ALPRAZolam 0.25 MG TAB PO PRN (10:03)
[2023-01-19] MEDS: HumaLOG 300 UNITS/3 ML VIAL SC PRN (16:47)
[2023-01-20] MEDS: Mometasone/Formoterol 60 PUFF AER INH SCH ×2 (07:21→18:28)
[2023-01-20] MEDS: predniSONE 20 MG TAB PO SCH (09:11)
[2023-01-20] MEDS: Senokot S 8.6-50 MG TAB PO SCH ×2 (09:12→22:37)
[2023-01-20] MEDS: Polyethylene Glycol 3350 17 GM Packet PO SCH (09:13)
[2023-01-20] MEDS: Sertraline 25 MG TAB PO SCH (09:13)
[2023-01-20] MEDS: clonazePAM 0.5 MG TAB PO SCH ×2 (09:13→22:37)
[2023-01-20] MEDS: HumaLOG 300 UNITS/3 ML VIAL SC PRN (17:19)
[2023-01-20] MEDS: Ondansetron PF 4 MG/2 ML Vial IVP PRN ×2 (17:23→22:37)
[2023-01-20] MEDS: ALPRAZolam 0.25 MG TAB PO PRN (17:29)
[2023-01-21 04:31] LABS: Hemoglobin 13.1 g/dL (12.0-15.5); Platelet Count 206 10x3/uL (150-450)
[2023-01-21 04:54] LABS: Anion Gap 14 mmol/L (10-20); BUN (Urea Nitrogen) 11 mg/dL (9.8-20.1); Calc. Creatinine Clearance 50 mL/min (70-130); Calcium 10.6 mg/dL (7.8-10.44); Carbon Dioxide 31 mmol/L (23-31); Chloride 98 mmol/L (98-107); Estimated GFR 76; Glucose 109 mg/dL (80-115); Potassium 3.3 mmol/L (3.5-5.1); Sodium 140 mmol/L (136-145)
[2023-01-21] MEDS ORDERED: Potassium Bicarbonate/Cit Ac 20 MEQ TAB PO SCH (06:00)
[2023-01-21 07:59] VITALS: BMI 17.9
[2023-01-21] MEDS: Mometasone/Formoterol 60 PUFF AER INH SCH ×2 (08:14→12:41)
[2023-01-21] MEDS: Ondansetron PF 4 MG/2 ML Vial IVP PRN (08:20)
[2023-01-21] MEDS ORDERED: predniSONE 10 MG TAB PO SCH (09:00)
[2023-01-21] MEDS: predniSONE 20 MG TAB PO SCH (10:01)
[2023-01-21] MEDS: clonazePAM 0.5 MG TAB PO SCH (10:01)
[2023-01-21] MEDS: Sertraline 25 MG TAB PO SCH (10:01)
[2023-01-21] MEDS: Senokot S 8.6-50 MG TAB PO SCH (10:01)
[2023-01-21] MEDS: Polyethylene Glycol 3350 17 GM Packet PO SCH (10:02)
[2023-01-21] MEDS: HYDROcodone/Acetaminophen 5/325 mg Tablet PO PRN (10:11)
[2023-01-21 12:28] VITALS: BP 103/66; TEMP 98
[2023-01-22] MEDS ORDERED: predniSONE 10 MG TAB PO SCH (09:00)
== END 2023-01-21 14:30 | disposition home or self-care (01) | DRG 870 ==
LOC: SUATTDRO 16:48 → CSHERS 16:48 → CSHICU 20:11 → CSHTELE 01-17 14:30
PROVIDERS: ADMIT Family Medicine; ATTEND Family Medicine
PROC: 5A1955Z Respiratory Ventilation, Greater than 96 Consecutive Hours (ICD-10-PCS; principal; 2022-12-25)
PROC: 0BH17EZ Insertion of Endotracheal Airway into Trachea, Via Natural or Artificial Opening (ICD-10-PCS; 2022-12-25)
PROC: 0D9670Z Drainage of Stomach with Drainage Device, Via Natural or Artificial Opening (ICD-10-PCS; 2022-12-25)
PROC: 3E03329 Introduction of Other Anti-infective into Peripheral Vein, Percutaneous Approach (ICD-10-PCS; 2022-12-25)
PROC: 5A1945Z Respiratory Ventilation, 24-96 Consecutive Hours (ICD-10-PCS; 2023-01-02)
PROC: 0BH17EZ Insertion of Endotracheal Airway into Trachea, Via Natural or Artificial Opening (ICD-10-PCS; 2023-01-02)
PROC: 3E033XZ Introduction of Vasopressor into Peripheral Vein, Percutaneous Approach (ICD-10-PCS; 2023-01-02)
PROC: 4A133R1 Monitoring of Arterial Saturation, Peripheral, Percutaneous Approach (ICD-10-PCS; 2023-01-02)
PROC: 5A0955A Assistance with Respiratory Ventilation, Greater than 96 Consecutive Hours, High Flow/Velocity Cannula (ICD-10-PCS; 2023-01-05)
PROC: 5A09357 Assistance with Respiratory Ventilation, Less than 24 Consecutive Hours, Continuous Positive Airway Pressure (ICD-10-PCS; 2023-01-11)
PROC: 5A0945A Assistance with Respiratory Ventilation, 24-96 Consecutive Hours, High Flow/Velocity Cannula (ICD-10-PCS; 2023-01-12)
PROC: 5A09357 Assistance with Respiratory Ventilation, Less than 24 Consecutive Hours, Continuous Positive Airway Pressure (ICD-10-PCS; 2023-01-14)
DX: A41.01 Sepsis due to Methicillin susceptible Staphylococcus aureus (principal); J96.21 Acute and chronic respiratory failure with hypoxia; J18.9 Pneumonia, unspecified organism; J96.22 Acute and chronic respiratory failure with hypercapnia; J44.1 Chronic obstructive pulmonary disease with (acute) exacerbation; E87.0 Hyperosmolality and hypernatremia; N17.9 Acute kidney failure, unspecified; E87.1 Hypo-osmolality and hyponatremia; R64 Cachexia; Z68.1 Body mass index [BMI] 19.9 or less, adult; N25.81 Secondary hyperparathyroidism of renal origin; J44.0 Chronic obstructive pulmonary disease with (acute) lower respiratory infection; F41.9 Anxiety disorder, unspecified; E83.52 Hypercalcemia; F32.A Depression, unspecified; R33.9 Retention of urine, unspecified; E01.0 Iodine-deficiency related diffuse (endemic) goiter; K59.00 Constipation, unspecified; L89.159 Pressure ulcer of sacral region, unspecified stage; Z98.51 Tubal ligation status; Z78.1 Physical restraint status; Z87.891 Personal history of nicotine dependence; Z99.81 Dependence on supplemental oxygen; Z79.899 Other long term (current) drug therapy
CPT/HCPCS: 31500; 36415; 36416; 36600; 51702; 71045; 74177; 74230; 76536; 80048; 80053; 81001; 82306; 82533; 82805; 83735; 83880; 83970; 84100; 84145; 84439; 84443; 85014; 85018; 85025; 85049; 86140; 87040; 87070; 87205; 93005; 93010; 93306; 94002; 94003; 94150; 94640; 94660; 94664; 94667; 94668; 94760; 94762; 96365; 96375; 97139; C9113; J0456; J0696; J1650; J1815; J2060; J2272; J2405; J2550; J2704; J2920; J2930; J3475; J3480; J3490; J7050; J7070; J7120; J7512; J7611; J7612; J7614; J7620; J7626; Q9967

== ENCOUNTER 2023-02-07 08:12 | Outpatient (CLI) | payer MEDICARE | END 2023-02-07 08:13 | disposition home or self-care (01) | LOC: CSHWCC 08:12 | PROVIDERS: ATTEND Nurse Practitioner Family | DX: L89.154 Pressure ulcer of sacral region, stage 4 (principal) | CPT/HCPCS: 11043; 97139; G0463; 99203 ==

== ENCOUNTER 2023-02-13 10:05 | Outpatient (CLI) | payer MEDICARE | END 2023-02-13 10:06 | disposition home or self-care (01) | LOC: CSHWCC 10:05 | PROVIDERS: ATTEND Nurse Practitioner Family | DX: L89.154 Pressure ulcer of sacral region, stage 4 (principal) | CPT/HCPCS: 11042 ==

== ENCOUNTER 2023-03-20 10:21 | Outpatient (CLI) | payer MEDICARE | END 2023-03-20 10:22 | disposition home or self-care (01) | LOC: CSHWCC 10:21 | PROVIDERS: ATTEND Nurse Practitioner Family | DX: L89.154 Pressure ulcer of sacral region, stage 4 (principal) | CPT/HCPCS: 97139; G0463; 99213 ==

== ENCOUNTER 2023-05-07 11:12 | Outpatient (CLI) | payer MEDICARE | END 2023-05-07 11:13 | disposition home or self-care (01) | LOC: CSHWCC 11:12 | PROVIDERS: ATTEND Nurse Practitioner Family | DX: L89.154 Pressure ulcer of sacral region, stage 4 (principal) | CPT/HCPCS: 97139; G0463; 99213 ==